=== PATIENT | female | born 1955 | race Caucasian/White ===

== ENCOUNTER → 2019-09-07 13:49 | Outpatient (BNVA) | payer SELFPAY | PROVIDERS: Family Provider Family Medicine; Visit Provider Nurse Practitioner Family | DX: J34.89 Other specified disorders of nose and nasal sinuses (principal); R53.83 Other fatigue; R68.83 Chills (without fever); Z11.59 Encounter for screening for other viral diseases | CPT/HCPCS: 87635 ==

== ENCOUNTER 2020-01-03 12:53 | Outpatient (CLI) | payer BC, SELFPAY ==
--- NOTE | 2020-01-03 13:02 | XR_ITS ---
WS: [id number] ABDOMEN KUB CLINICAL INFORMATION: Renal/ureteral calculi. COMPARISON: None. FINDINGS: Normal bowel gas pattern. Scattered air and normal caliber small and large bowel. No significant wil l distention. Cholecystectomy clips. Mild spondylitic changes lumbar spine. No definite visualized ureteral calculi . A few suspected left renal parenchymal calculi measuring 5 mm. XR/XR KUB [id number] Impression: 1. Diffuse suspected left renal parenchymal calculi measuring 5 mm. 2. No visualized right renal calculi. 3. No ureteral calculi. Pelvic phleboliths.
== END 2020-01-03 12:54 | disposition home or self-care (01) ==
LOC: RADWPI 13:00
PROVIDERS: PCP Family Medicine; Visit Provider Family Medicine
DX: N20.0 Calculus of kidney (principal)
CPT/HCPCS: 74018

== ENCOUNTER 2020-01-04 14:31 | Outpatient (CLI) | payer BC, SELFPAY ==
--- NOTE | 2020-01-04 14:43 | CT_ITS ---
WS: [id number] CT ABDOMEN PELVIS TECHNIQUE: Noncontrast CT of the abdomen and pelvis with coronal and sagittal reformatted images. CLINICAL INFORMATION: CALCULUS OF KIDNEY COMPARISON: None. DLP: 848.[address] scans at [facility] use at least one of these dose optimization techniques: automat ed exposure control; mA and/or kV adjustment per patient size (includes targeted exams where dose is matched to clinical indication); or iterative reconstruction. FINDINGS: Mild hepatomegaly. Mild diffuse fatty infiltration liver. Cholecystectomy clips. Normal GE junction. Small esophageal hiatal hernia. Lung bases are well aerated. Fatty atrophy of the pancreas. Noncontra st spleen is normal. Adrenal glands are normal. No hydronephrosis in the left kidney. Nonobstructing left calyceal tip calculus measuring 5 mm. No obstructing left ureteral calculi. No right renal paren chymal or ureteral calculi. No hydronephrosis in right kidney. Normal caliber abdominal aorta. Aortic calcification. No periaortic or retroperitoneal lymphadenopath y. Normal sigmoid colon. No evidence of small or large bowel obstruction. Normal appendix. Fat-contai ramirez umbilical hernia. No pelvic or inguinal lymphadenopathy. A few sigmoid diverticuli. No evidence of acute diverticulitis. CT/CT kidney stone [id number] IMPRESSION: 1. No obstructing renal or ureteral calculi. No hydronephrosis. 2. 5 mm nonobstructing left calyceal tip calculi. 3. Small esophageal hiatal hernia. 4. Mild hepatomegaly with diffuse fatty infiltration. 5. Prior cholecystectomy. 6. Sigmoid diverticulosis. No evidence of acute diverticulitis. 7. No free fluid in the abdomen or pelvis. 8. Incidental fat-containing umbilical hernia.
== END 2020-01-04 14:32 | disposition home or self-care (01) ==
LOC: RADWPI 14:33
PROVIDERS: PCP Family Medicine; Visit Provider Family Medicine
DX: N20.0 Calculus of kidney (principal); K42.9 Umbilical hernia without obstruction or gangrene; K57.30 Diverticulosis of large intestine without perforation or abscess without bleeding; Z90.49 Acquired absence of other specified parts of digestive tract; R16.0 Hepatomegaly, not elsewhere classified; K76.0 Fatty (change of) liver, not elsewhere classified
CPT/HCPCS: 74176

== ENCOUNTER 2020-01-06 04:22 | Emergency (ER) | payer BC, SELFPAY ==
[2020-01-06 04:26] VITALS: BP 151/84; PULSE 78; RESP 17; TEMP 36.6; O2SAT 95; BMI 37.5
--- NOTE | 2020-01-06 04:37 | W.ED.ABDPA2 ---
Documented by User: Colin Saha MD 01/06/20 05:29 HPI - Abdominal Pain General: Chief Complaint: Abdominal Pain Stated Complaint: poss kidney stones Time Seen by Provider: 01/06/20 04:24 Source: patient Mode of arrival: ambulatory Limitations: no limitations History of Present Illness: HPI narrative: 64-year-old female who states she is having abdominal pain earlier in the week and had a CT scan Thursday looking for kidney stone. It did show a stone in her left kidney had not passed. States her pain is been well Thursday and but states that just 2 hours ago she started having severe pain on the left side radiated to her groin. States pain was 9 out of 10 earlier. She took a hydrocodone now her pain is a 1 out of 10. She denies any vomiting or diarrhea. Denies any fevers. MD elicited complaint: abdominal pain Associated Symptoms: Denies chills, diarrhea, dysuria, fever(s), nausea and vomiting Review of Systems Const: Denies: fever(s), chills, body aches or change in appetite Eyes: Denies: blurry vision or eye discomfort ENMT: Denies: throat pain or dental pain Card: Denies: chest pain Resp: Denies: dyspnea GI: Reports: abdominal pain; Denies: nausea, vomiting or diarrhea : Denies: dysuria Musc: Denies: neck pain or back pain Skin/Breast: Denies: rash Neuro: Denies: headache(s) Psych: Denies: depression Albert/Lymph: Denies: easy bruising All/Imm: Denies: urticaria Physical Exam Const: COMMON NORMALS: no acute distress, patient oriented x3 and healthy appearing HENMT: COMMON NORMALS: normocephalic and atraumatic HEAD & SCALP: normocephalic and atraumatic Eye: COMMON NORMALS: Equal, round and reactive pupils present and EOMs intact bilaterally PUPIL: Yes Equal, round and reactive pupils present Neck/C-Spine: COMMON NORMALS: full ROM and supple Chest: COMMONS NORMALS: normal inspection of the chest and normal palpation of entire chest wall Resp: COMMON NORMALS: normal respiratory effort, No retractions, No use of accessory muscles and clear to auscultation bilaterally AUSCULTATION: clear to auscultation bilaterally Cardio: COMMON NORMALS: regular rate, regular rhythm and No murmurs present (Cardio) RATE: regular rate RHYTHM: regular rhythm GI: COMMON NORMALS: Normal to inspection, nondistended, normoactive bowel sounds present, Soft to palpation, non-tender and no masses PALPATION: Yes Soft to palpation Extremity: COMMON NORMALS: normal to inspection and full ROM Neuro: COMMON NORMALS: patient oriented x3, moves all extremities and no focal motor deficits Psych: COMMON NORMALS: mental status grossly normal, Normal thought process present and cooperative THOUGHT PROCESS: Normal thought process present Skin: COMMON NORMALS: no rashes or lesions noted and no wounds GENERAL SKIN EXAM: no rashes or lesions noted Course Vital Signs: Vital signs: Vital Signs Temperature 97.9 F 01/06/20 04:26 Pulse Rate 83 01/06/20 06:22 Respiratory Rate 18 01/06/20 06:22 Blood Pressure 148/88 01/06/20 06:22 Pulse Oximetry 97 01/06/20 06:22 MDM - Abdominal Pain MDM Narrative: Medical decision making narrative: Lala presents here with flank pain is likely kidney stone. Patient abdominal exam here is benign no signs of surgical abdomen. Reviewed her CT scan of 2 days ago which showed a stone in her left kidney. I believe the stone is likely passed into her ureter. Patient's pain-free now after Russell. Patient's labs and urine are pending and care turned over to Dr. Crowe. Lab Data: Labs: Lab Results 01/06/20 01/06/20 01/06/20 Range/Units 05:20 05:20 05:41 WBC 14.9 H (4.0-10.0) 10^3/ uL RBC 4.46 (4.1-5.3) 10^6/u L Hgb 11.9 (11.5-15.3) g/dL Hct 39.3 (37.0-47.0) % MCV 88.1 (81-99) fL MCH 26.7 L (28.0-34.0) pg MCHC 30.3 (30.0-36.0) g/dL RDW 14.9 (12.1-15.1) % Plt Count 336 (130-400) 10^3/c mm MPV 10.5 H (7.4-10.4) fL Neut % (Auto) 82.8 % Lymph % (Auto) 8.1 % Dewitt % (Auto) 7.0 % Eos % (Auto) 1.0 % Baso % (Auto) 0.7 % Neut # (Auto) 12.31 H (1.8-7.7) 10^3/u L Lymph # (Auto) 1.2 (0.8-4.8) 10^3/u L Dewitt # (Auto) 1.0 H (0.2-0.9) 10^3/u L Eos # (Auto) 0.2 (0.0-0.8) 10^3/u L Baso # (Auto) 0.1 (0.0-0.1) 10^3/u L Nucleated RBC % (a uto) 0 % Nucleated RBCs # 0.0 /100WBC Sodium 141 (136-145) mmol/L Potassium 4.0 (3.5-5.1) mmol/L Chloride 100 (98-107) mmol/L Carbon Dioxide 28 (22-29) mmol/L Anion Gap 17.0 (5-19) BUN 30 H (8-23) mg/dL Creatinine 1.0 H (0.5-0.9) mg/dL GFR Calculation 56.2 L (90-130) mL/min Glucose 141 H (65-115) mg/dL Calculated Osmolal ity 301 H (285-295) mOsm/k g Calcium 10.3 (8.5-10.5) mg/dL Total Bilirubin 0.2 (0.15-1.2) mg/dL AST 15 (0-32) U/L ALT 17 (0-33) U/L Alkaline Phosphata se 73 (35-105) IU/L Total Protein 6.9 (6.6-8.7) g/dL Albumin 4.1 (3.5-5.2) g/dL Globulin 2.8 (1.3-4.6) g/dL Lipase 41 (13-60) U/L Urine Color Yellow (Yellow) Urine Appearance Sl hazy (CLEAR) Urine pH 5 (5-7) Ur Specific Gravit y 1.020 (1.005-1.030) Urine Protein Neg (Negative) Urine Glucose (UA) Norm (Normal) Urine Ketones Negative (Negative) Urine Blood 3+ H (Negative) Urine Nitrate Negative (Negative) Urine Bilirubin Neg (Negative) Urine Urobilinogen Norm (Negative) mg/dL Ur Leukocyte Charlotte ase Negative (Negative) Urine RBC 50-80 H (0-2) /hpf Urine WBC 10-15 H (0-5) /hpf Ur Squamous Epith Cells 0-4 H (0-5) /hpf Ur Transition Epit h Cell 0-4 /hpf Amorphous Sediment Not Reportable Urine Bacteria 1+ H (NONE) /hpf Urine Mucus 1+ /hpf Discharge Plan Discharge Patient Disposition: Home Clinical Impression: Ureterolithiasis Condition: Stable Prescriptions: New hydrocodone-acetaminophen 5-325 mg tablet 1 tab PO Q6H PRN (Reason: pain) Qty: 20 RF: 0 tamsulosin 0.4 mg capsule 0.4 mg PO DAILY Qty: 14 RF: 0 Discharge Orders: Discharge Order (Routine); Ordered 01/06/20 Ordered By: Jorge A Foley Referrals: Devika Miller MD [Primary Care Provider] - Discharge Diet: Usual diet Discharge Activity: Increase activity as tolerated Activity Restrictions/Additional Instructions: Follow-up with your primary care doctor in the next 3 to 4 days. Return to the ER if you have uncontrolled pain. Strain urine to collect stone. Sign Out Sign Out Data: Patient Sign Out occurred on 01/06/20 at 05:52. Patient's care was discussed, and care was transferred from to Jorge A Foley DO. Coding Level of Care Code ED Drill Punch Operator for Chg Fwd Exam Comprehensive Documented by User: Jorge A Foley DO 01/06/20 06:58 HPI - Abdominal Pain General: Chief Complaint: Abdominal Pain Stated Complaint: poss kidney stones Time Seen by Provider: 01/06/20 04:24 Course Vital Signs: Vital signs: Vital Signs Temperature 97.9 F 01/06/20 04:26 Pulse Rate 83 01/06/20 06:22 Respiratory Rate 18 01/06/20 06:22 Blood Pressure 148/88 01/06/20 06:22 Pulse Oximetry 97 01/06/20 06:22 MDM - Abdominal Pain MDM Narrative: Medical decision making narrative: Care assumed a change of shift. KUB unable to localize stone due to stool and gas pattern. Patient is pain-free at this time will continue hydrocodone and Zofran she is previously prescribed. Gave some extra hydrocodone to get through the weekend. Lab her strain her urine also started on tamsulosin follow-up with her primary care doctor early next week return to the emergency room if she is unable to manage the pain with oral medications. Lab Data: Labs: Lab Results 01/06/20 01/06/20 01/06/20 Range/Units 05:20 05:20 05:41 WBC 14.9 H (4.0-10.0) 10^3/ uL RBC 4.46 (4.1-5.3) 10^6/u L Hgb 11.9 (11.5-15.3) g/dL Hct 39.3 (37.0-47.0) % MCV 88.1 (81-99) fL MCH 26.7 L (28.0-34.0) pg MCHC 30.3 (30.0-36.0) g/dL RDW 14.9 (12.1-15.1) % Plt Count 336 (130-400) 10^3/c mm MPV 10.5 H (7.4-10.4) fL Neut % (Auto) 82.8 % Lymph % (Auto) 8.1 % Dewitt % (Auto) 7.0 % Eos % (Auto) 1.0 % Baso % (Auto) 0.7 % Neut # (Auto) 12.31 H (1.8-7.7) 10^3/u L Lymph # (Auto) 1.2 (0.8-4.8) 10^3/u L Dewitt # (Auto) 1.0 H (0.2-0.9) 10^3/u L Eos # (Auto) 0.2 (0.0-0.8) 10^3/u L Baso # (Auto) 0.1 (0.0-0.1) 10^3/u L Nucleated RBC % (a uto) 0 % Nucleated RBCs # 0.0 /100WBC Sodium 141 (136-145) mmol/L Potassium 4.0 (3.5-5.1) mmol/L Chloride 100 (98-107) mmol/L Carbon Dioxide 28 (22-29) mmol/L Anion Gap 17.0 (5-19) BUN 30 H (8-23) mg/dL Creatinine 1.0 H (0.5-0.9) mg/dL GFR Calculation 56.2 L (90-130) mL/min Glucose 141 H (65-115) mg/dL Calculated Osmolal ity 301 H (285-295) mOsm/k g Calcium 10.3 (8.5-10.5) mg/dL Total Bilirubin 0.2 (0.15-1.2) mg/dL AST 15 (0-32) U/L ALT 17 (0-33) U/L Alkaline Phosphata se 73 (35-105) IU/L Total Protein 6.9 (6.6-8.7) g/dL Albumin 4.1 (3.5-5.2) g/dL Globulin 2.8 (1.3-4.6) g/dL Lipase 41 (13-60) U/L Urine Color Yellow (Yellow) Urine Appearance Sl hazy (CLEAR) Urine pH 5 (5-7) Ur Specific Gravit y 1.020 (1.005-1.030) Urine Protein Neg (Negative) Urine Glucose (UA) Norm (Normal) Urine Ketones Negative (Negative) Urine Blood 3+ H (Negative) Urine Nitrate Negative (Negative) Urine Bilirubin Neg (Negative) Urine Urobilinogen Norm (Negative) mg/dL Ur Leukocyte Charlotte ase Negative (Negative) Urine RBC 50-80 H (0-2) /hpf Urine WBC 10-15 H (0-5) /hpf Ur Squamous Epith Cells 0-4 H (0-5) /hpf Ur Transition Epit h Cell 0-4 /hpf Amorphous Sediment Not Reportable Urine Bacteria 1+ H (NONE) /hpf Urine Mucus 1+ /hpf Discharge Plan Discharge Patient Disposition: Home Clinical Impression: Ureterolithiasis Condition: Stable Prescriptions: New hydrocodone-acetaminophen 5-325 mg tablet 1 tab PO Q6H PRN (Reason: pain) Qty: 20 RF: 0 tamsulosin 0.4 mg capsule 0.4 mg PO DAILY Qty: 14 RF: 0 Discharge Orders: Discharge Order (Routine); Ordered 01/06/20 Ordered By: Jorge A Foley Referrals: Devika Miller MD [Primary Care Provider] - Discharge Diet: Usual diet Discharge Activity: Increase activity as tolerated Activity Restrictions/Additional Instructions: Follow-up with your primary care doctor in the next 3 to 4 days. Return to the ER if you have uncontrolled pain. Strain urine to collect stone. Sign Out Sign Out Data: Patient Sign Out occurred on 01/06/20 at 05:52. Patient's care was discussed, and care was transferred from to Jorge A Foley DO. Coding Level of Care Code ED Drill Punch Operator for Chg Fwd Exam Comprehensive
[2020-01-06] MEDS: sodium chloride 0.9% 1,000 ML 999 ML IV (05:05)
[2020-01-06] MEDS: ondansetron 2 mg/ML SDV 2 mL 4 MG IVP (05:08)
[2020-01-06 05:22] VITALS: BP 147/87; PULSE 82; RESP 16; O2SAT 96
[2020-01-06 05:33] VITALS: BP 147/87; RESP 18; O2SAT 93
--- NOTE | 2020-01-06 05:52 | XRR_ITS ---
PROCEDURE INFORMATION: Exam: XR Abdomen, 1 View Exam date and time: 01/06/2020 6:00 AM Age: 64 years old Clinical indication: Abdominal pain; Prior surgery; Surgery type: Gb, hysto; Additional info: Abd pain TECHNIQUE: Imaging protocol: XR of the abdomen. Views: Frontal supine view of the abdomen. 1 View. COMPARISON: CT kidney stone [id number] 01/04/2020 2:56 PM FINDINGS: Gastrointestinal tract: Normal. No bowel dilation. Cholecystectomy clips are in place. Bones/joints: Unremarkable. XR/XR KUB portable [id number] IMPRESSION: No acute findings.
[2020-01-06 06:01] LABS: Basophils # 0.1 10^3/uL (0.0-0.1); Basophils % 0.7 %; Eosinophils # 0.2 10^3/uL (0.0-0.8); Hematocrit 39.3 % (37.0-47.0); Hemoglobin 11.9 g/dL (11.5-15.3); Lymphocytes # 1.2 10^3/uL (0.8-4.8); Lymphocytes % 8.1 %; Mean Corpuscular HGB Conc 30.3 g/dL (30.0-36.0); Mean Corpuscular Hemoglobin 26.7 pg (28.0-34.0); Mean Corpuscular Volume 88.1 fL (81-99); Mean Platelet Volume 10.5 fL (7.4-10.4); Neutrophils # 12.31 10^3/uL (1.8-7.7); Neutrophils % 82.8 %; Nucleated Red Blood Cells % 0 %; Platelet Count 336 10^3/cmm (130-400); Red Blood Count 4.46 10^6/uL (4.1-5.3); Red Cell Distribution Width 14.9 % (12.1-15.1); White Blood Count 14.9 10^3/uL (4.0-10.0)
[2020-01-06 06:02] LABS: Alanine Aminotransferase 17 U/L (0-33); Albumin Level 4.1 g/dL (3.5-5.2); Alkaline Phosphatase 73 IU/L (35-105); Aspartate Amino Transferase 15 U/L (0-32); Blood Urea Nitrogen 30 mg/dL (8-23); Calcium 10.3 mg/dL (8.5-10.5); Carbon Dioxide 28 mmol/L (22-29); Chloride 100 mmol/L (98-107); Globulin 2.8 g/dL (1.3-4.6); Glomerular Filtration Rate 56.2 mL/min (90-130); Glucose 141 mg/dL (65-115); Lipase 41 U/L (13-60); Osmolality Calculated 301 mOsm/kg (285-295); Sodium 141 mmol/L (136-145); Total Bilirubin 0.2 mg/dL (0.15-1.2); Total Protein 6.9 g/dL (6.6-8.7)
[2020-01-06 06:22] VITALS: BP 148/88; PULSE 83; RESP 18; O2SAT 97
[2020-01-06 06:39] LABS: Add Urine Microscopic? YES; Bilirubin Urine Neg (Negative); Blood Urine 3+ (Negative); Glucose Urine UA Norm (Normal); Ketones Urine Negative (Negative); Leukocyte Esterase Urine Negative (Negative); Nitrate Urine Negative (Negative); Protein Urine Neg (Negative); Urine Appearance SL Hazy (CLEAR); Urine Color Yellow (Yellow); Urobilinogen Urine Norm (Negative); pH Urine 5 (5-7)
[2020-01-06 06:40] LABS: RBC Urine 50-80 /hpf (0-2)
[2020-01-06 06:41] LABS: Add Urine Culture? Yes; Bacteria Urine 1+ /hpf; Mucus Urine 1+ /hpf; Squamous Epithelial Cell Urine 0-4 /hpf (0-5); Transitional Epi Cells Urine 0-4 /hpf
[2020-01-06 07:36] VITALS: BP 130/80; PULSE 87; RESP 18; O2SAT 92
== END 2020-01-06 07:10 | disposition home or self-care (01) ==
PROVIDERS: Emergency Medicine; Emergency Provider Family Medicine; PCP Family Medicine
DX: N20.1 Calculus of ureter (principal)
CPT/HCPCS: 12345; 74018; 80053; 81001; 83690; 85025; 87086; 96361; 96374; 99282; 99283; J2405; J7030

== ENCOUNTER 2020-01-09 06:32 | Emergency (ER) | payer BC, SELFPAY ==
[2020-01-09 06:39] VITALS: BP 115/84; PULSE 92; RESP 18; TEMP 37.1; O2SAT 97; BMI 37.5
--- NOTE | 2020-01-09 07:12 | XRR_ITS ---
PROCEDURE INFORMATION: Exam: XR Abdomen, 1 View Exam date and time: 01/09/2020 7:30 AM Age: 64 years old Clinical indication: Constipation; Prior surgery; Surgery type: Gb, hysterectomy TECHNIQUE: Imaging protocol: XR of the abdomen. Views: Frontal supine view of the abdomen. 1 View. COMPARISON: CR XR KUB portable [id number] 01/06/2020 5:55 AM FINDINGS: Gastrointestinal tract: There is mildly increased stool noted in the colonic hepatic flexure. No evidence of bowel obstruction. Organs: The gallbladder is likely surgically absent, with metallic clips overlying the gallbladder fossa. Bones/joints: No acute abnormality identified. XR/XR KUB portable [id number] IMPRESSION: 1. Mild right upper abdominal colonic constipation. 2. Prior cholecystectomy.
[2020-01-09 07:51] LABS: Basophils # 0.1 10^3/uL (0.0-0.1); Basophils % 0.6 %; Eosinophils # 0.3 10^3/uL (0.0-0.8); Hematocrit 40.4 % (37.0-47.0); Hemoglobin 12.4 g/dL (11.5-15.3); Lymphocytes # 1.7 10^3/uL (0.8-4.8); Lymphocytes % 13.3 %; Mean Corpuscular HGB Conc 30.7 g/dL (30.0-36.0); Mean Corpuscular Hemoglobin 27.3 pg (28.0-34.0); Mean Platelet Volume 10.2 fL (7.4-10.4); Monocytes % 8.1 %; Neutrophils # 9.46 10^3/uL (1.8-7.7); Neutrophils % 75.5 %; Nucleated Red Blood Cells % 0 %; Platelet Count 341 10^3/cmm (130-400); Red Blood Count 4.54 10^6/uL (4.1-5.3); Red Cell Distribution Width 14.6 % (12.1-15.1); White Blood Count 12.5 10^3/uL (4.0-10.0)
--- NOTE | 2020-01-09 08:12 | ED_ITS ---
HPI - General Adult General: Chief complaint: General Medical Stated complaint: constipation Time Seen by Provider: 01/09/20 06:47 History of Present Illness: HPI narrative: 64-year-old female came in last week for a nephrolithiasis feels like she had a bladder infection was started on ciprofloxacin. Advised to continue that at hydrocodone 10 tamsulosin 1. She denies any flank pain which is a bout of abdominal pain and cramping since starting the hydrocodone the pain is been well controlled. She has just 2 days left of the Cipro and still has some dysuria Onset (ago): day(s) Location: abdomen Radiation: non-radiation Severity: mild Quality: aching Pain Consistency: intermittent and colicky Relieving factors: none Exacerbating factors: none Associated symptoms: Reports headache(s) and nausea; Deny chest pain, confusion, cough, diaphoresis, decreased appetite, dyspnea, fevers/chills, malaise, rash, palpitations, seizures, short of breath, syncope, vomiting or weakness Treatments prior to arrival: none Review of Systems Const: Denies: malaise or diaphoresis ENMT: Denies: throat pain, ear or mastoid pain, nasal discharge or nasal congestion Card: Denies: chest pain, palpitations or syncope Resp: Denies: dyspnea GI: Reports: nausea; Denies: vomiting : Denies: flank pain, difficulty voiding, dysuria, urinary frequency or urinary urgency Skin/Breast: Denies: rash Neuro: Reports: headache(s); Denies: confusion Physical Exam Const: COMMON NORMALS: no acute distress GENERAL APPEARANCE: cooperative and comfortable ORIENTATION/CONSCIOUSNESS: Yes awake, Yes oriented to person, Yes oriented to place and Yes oriented to time HENMT: COMMON NORMALS: normocephalic, atraumatic and hearing grossly normal bilaterally HEAD & SCALP: normocephalic and atraumatic Neck/C-Spine: COMMON NORMALS: no JVD Resp: COMMON NORMALS: normal respiratory effort, No retractions, No use of accessory muscles and clear to auscultation bilaterally AUSCULTATION: clear to auscultation bilaterally Cardio: COMMON NORMALS: no JVD, regular rate, regular rhythm and No murmurs present (Cardio) RATE: regular rate RHYTHM: regular rhythm GI: COMMON NORMALS: Soft to palpation and No hepatosplenomegaly present AUSCULTATION: Yes normoactive bowel sounds PALPATION: Yes Soft to palpation, No Tenderness to palpation present (GI), No Guarding due to palpation present (GI) and Yes No hepatosplenomegaly present Extremity: COMMON NORMALS: normal to inspection, capillary refill normal, no clubbing, cyanosis or edema, no calf tenderness and no pedal edema Neuro: SENSORIUM/ORIENTATION: Yes oriented to person, Yes oriented to place and Yes oriented to time Skin: COMMON NORMALS: no rashes or lesions noted GENERAL SKIN EXAM: no rashes or lesions noted Course Vital Signs: Vital signs: Vital Signs Temperature 98.8 F 01/09/20 06:39 Pulse Rate 92 01/09/20 06:39 Respiratory Rate 18 01/09/20 06:39 Blood Pressure 115/84 01/09/20 06:39 Pulse Oximetry 97 01/09/20 06:39 MDM - General Adult MDM Narrative: Medical decision making narrative: UA still shows signs of infection. Will add Bactrim DS 1 p.o. twice daily for 7 days MiraLAX regularly to prevent constipation. Follow-up with Dr. Copeland as previously scheduled. Continue to strain her urine to this point she is not caught the stone but she does not have much for pain at all. Since she is relatively pain-free hold off on repeating the CT for renal stone today. She had good relief of her abdominal cramping with the enema. Keep the appointment Dr. Devika Miller as scheduled. Lab Data: Labs: Lab Results 01/09/20 01/09/20 01/09/20 Range/Units 07:40 07:40 09:21 WBC 12.5 H (4.0-10.0) 10^3/ uL RBC 4.54 (4.1-5.3) 10^6/u L Hgb 12.4 (11.5-15.3) g/dL Hct 40.4 (37.0-47.0) % MCV 89.0 (81-99) fL MCH 27.3 L (28.0-34.0) pg MCHC 30.7 (30.0-36.0) g/dL RDW 14.6 (12.1-15.1) % Plt Count 341 (130-400) 10^3/c mm MPV 10.2 (7.4-10.4) fL Neut % (Auto) 75.5 % Lymph % (Auto) 13.3 % Letcher % (Auto) 8.1 % Eos % (Auto) 2.0 % Baso % (Auto) 0.6 % Neut # (Auto) 9.46 H (1.8-7.7) 10^3/u L Lymph # (Auto) 1.7 (0.8-4.8) 10^3/u L Letcher # (Auto) 1.0 H (0.2-0.9) 10^3/u L Eos # (Auto) 0.3 (0.0-0.8) 10^3/u L Baso # (Auto) 0.1 (0.0-0.1) 10^3/u L Nucleated RBC % (a uto) 0 % Nucleated RBCs # 0.0 /100WBC Sodium 139 (136-145) mmol/L Potassium 4.0 (3.5-5.1) mmol/L Chloride 99 (98-107) mmol/L Carbon Dioxide 27 (22-29) mmol/L Anion Gap 17.0 (5-19) BUN 14 (8-23) mg/dL Creatinine 0.8 (0.5-0.9) mg/dL GFR Calculation 72.7 L (90-130) mL/min Glucose 121 H (65-115) mg/dL Calculated Osmolal ity 290 (285-295) mOsm/k g Calcium 9.4 (8.5-10.5) mg/dL Total Bilirubin 0.4 (0.15-1.2) mg/dL AST 15 (0-32) U/L ALT 18 (0-33) U/L Alkaline Phosphata se 77 (35-105) IU/L Total Protein 7.2 (6.6-8.7) g/dL Albumin 4.4 (3.5-5.2) g/dL Globulin 2.8 (1.3-4.6) g/dL Urine Color Dark yellow (Yellow) Urine Appearance Cloudy (CLEAR) Urine pH 5 (5-7) Ur Specific Gravit y 1.030 (1.005-1.030) Urine Protein 1+ H (Negative) Urine Glucose (UA) Norm (Normal) Urine Ketones Negative (Negative) Urine Blood 3+ H (Negative) Urine Nitrate Negative (Negative) Urine Bilirubin 1+ H (Negative) Urine Urobilinogen 1 H (Negative) mg/dL Ur Leukocyte Charlotte ase Negative (Negative) Urine RBC 25-40 H (0-2) /hpf Urine WBC 15-25 H (0-5) /hpf Ur Squamous Epith Cells 0-4 H (0-5) /hpf Amorphous Sediment Not Reportable Urine Bacteria 1+ H (NONE) /hpf Discharge Plan Discharge Patient Disposition: Home Clinical Impression: Constipation Condition: Stable Prescriptions: New Miralax 17 gram/dose powder 17 g PO DAILY Qty: 510 RF: 0 Bactrim DS 800-160 mg tablet 1 tab PO BID Qty: 14 RF: 0 No Action hydrocodone-acetaminophen 5-325 mg tablet 1 tab PO Q6H PRN (Reason: pain) Qty: 20 RF: 0 tamsulosin 0.4 mg capsule 0.4 mg PO DAILY Qty: 14 RF: 0 Discharge Orders: Discharge Order (Routine); Ordered 01/09/20 Ordered By: Jorge A Foley Referrals: Devika Miller MD [Primary Care Provider] - Discharge Diet: Usual diet Discharge Activity: Increase activity as tolerated Activity Restrictions/Additional Instructions: Continue to strain urine follow-up with Dr. Devika Miller as previously scheduled Coding Level of Care Code ED Lead Fire Protection Engineer for Chg Fwd Exam Comprehensive
[2020-01-09 08:14] LABS: Alanine Aminotransferase 18 U/L (0-33); Albumin Level 4.4 g/dL (3.5-5.2); Alkaline Phosphatase 77 IU/L (35-105); Aspartate Amino Transferase 15 U/L (0-32); Blood Urea Nitrogen 14 mg/dL (8-23); Calcium 9.4 mg/dL (8.5-10.5); Carbon Dioxide 27 mmol/L (22-29); Chloride 99 mmol/L (98-107); Globulin 2.8 g/dL (1.3-4.6); Glomerular Filtration Rate 72.7 mL/min (90-130); Glucose 121 mg/dL (65-115); Osmolality Calculated 290 mOsm/kg (285-295); Sodium 139 mmol/L (136-145); Total Bilirubin 0.4 mg/dL (0.15-1.2); Total Protein 7.2 g/dL (6.6-8.7)
[2020-01-09 09:30] LABS: Bilirubin Urine 1+ (Negative); Glucose Urine UA Norm (Normal); Ketones Urine Negative (Negative); Nitrate Urine Negative (Negative); Protein Urine 1+ (Negative); Urine Appearance Cloudy (CLEAR); Urine Color Dark Yellow (Yellow); pH Urine 5 (5-7)
[2020-01-09 09:31] LABS: Add Urine Microscopic? YES; Blood Urine 3+ (Negative); Leukocyte Esterase Urine Negative (Negative); Urobilinogen Urine 1 mg/dL (Negative)
[2020-01-09 09:53] LABS: Add Urine Culture? Yes; Bacteria Urine 1+ /hpf; RBC Urine 25-40 /hpf (0-2); Squamous Epithelial Cell Urine 0-4 /hpf (0-5); WBC Urine 15-25 /hpf (0-5)
== END 2020-01-09 10:40 | disposition home or self-care (01) ==
PROVIDERS: Emergency Provider Family Medicine; PCP Family Medicine
DX: K59.00 Constipation, unspecified (principal)
CPT/HCPCS: 12345; 74018; 80053; 81001; 85025; 87086; 99281; 99283

== ENCOUNTER 2020-02-02 11:18 | Outpatient (CLI) | payer BC, SELFPAY ==
--- NOTE | 2020-02-02 11:38 | XRR_ITS ---
PROCEDURE INFORMATION: Exam: XR Abdomen, 1 View Exam date and time: 02/02/2020 11:40 AM Age: 64 years old Clinical indication: Abdominal pain; Periumbilical; Prior surgery; Surgery type: Hyst, gb; Additional info: Pelvic perineal pain/periumbilical pain TECHNIQUE: Imaging protocol: XR of the abdomen. Views: Frontal supine view of the abdomen. 1 View. COMPARISON: CR XR KUB portable [id number] 01/09/2020 7:15 AM FINDINGS: Gastrointestinal tract: Normal. No bowel dilation. Organs: Clips are present in the right upper quadrant consistent with cholecystectomy. There is a 7 mm calcification in the left lower pelvis which is consistent with a distal left ureteral stone. Bones/joints: Unremarkable. XR/XR KUB [id number] IMPRESSION: A 7 mm calcification in the left lower pelvis is consistent with a distal left ureteral stone.
== END 2020-02-02 11:19 | disposition home or self-care (01) ==
PROVIDERS: PCP Family Medicine; Visit Provider Nurse Practitioner Family
DX: R10.2 Pelvic and perineal pain (principal); R10.33 Periumbilical pain; N20.1 Calculus of ureter
CPT/HCPCS: 74018

== ENCOUNTER 2020-05-28 15:00 | Outpatient (CLI) | payer BC, SELFPAY ==
--- NOTE | 2020-05-28 15:04 | MM_ITS ---
WS: [id number] BILATERAL DIGITAL SCREENING MAMMOGRAPHY WITH CAD CLINICAL INFORMATION: SCREENING HISTORY: Screening mammogram. No current complaints. COMPARISON: TECHNIQUE: Bilateral CC and MLO views. FINDINGS: The breasts are composed of heterogeneous fibroglandular density tissue, which can limit the detectio n of small underlying mass lesions. No suspicious mass, asymmetry, calcifications, or architectural d istortion. No evidence of malignancy. MM/[place] [id number] IMPRESSION: BI-RADS: 1-Negative FOLLOW UP: 1 Year Follow-up Recommend return to annual screening mammography.
== END 2020-05-28 15:01 | disposition home or self-care (01) ==
LOC: RADSHAW 15:03
PROVIDERS: PCP Family Medicine; Visit Provider Family Medicine
DX: Z12.31 Encounter for screening mammogram for malignant neoplasm of breast (principal)
CPT/HCPCS: 77067

== ENCOUNTER 2020-06-11 06:00 | Outpatient (RCR) | payer BC, SELFPAY | END 2020-07-09 23:59 | disposition home or self-care (01) | LOC: SPT 06:00 | PROVIDERS: PCP Family Medicine; Referring Provider Physician Assistant Surgical; Visit Provider Physician Assistant Surgical | DX: Z47.1 Aftercare following joint replacement surgery (principal); Z96.651 Presence of right artificial knee joint | CPT/HCPCS: 97110; 97161 ==

== ENCOUNTER 2020-08-19 02:04 | Emergency (ER) | payer BC, SELFPAY ==
[2020-08-19 02:12] VITALS: BP 110/71; PULSE 81; RESP 16; TEMP 36.7; O2SAT 94; BMI 37.5
--- NOTE | 2020-08-19 02:17 | CTR_ITS ---
PROCEDURE INFORMATION: Exam: CT Head Without Contrast Exam date and time: 08/19/2020 2:17 AM Age: 65 years old Clinical indication: Dizziness; Additional info: Dizziness, n/v TECHNIQUE: Imaging protocol: Computed tomography of the head without contrast. Radiation optimization: All CT scans at this facility use at least one of these dose optimization techniques: automated exposure control; mA and/or kV adjustment per patient size (includes targeted exams where dose is matched to clinical indication); or iterative reconstruction. COMPARISON: No relevant prior studies available. RADIATION DOSE METRICS: Total DLP (mGy-cm): 809.96 FINDINGS: Brain: No acute intracranial hemorrhage or mass effect. No definite acute infarct by CT. MRI could be more sensitive/specific for detection, as clinically directed. Cerebral ventricles: Ventricle size is normal for age. Paranasal sinuses: Included paranasal sinuses are essentially clear. Mastoid air cells: No significant acute finding. Bones/joints: No definite acute skull fracture. CT/CT head wo con* [id number] IMPRESSION: 1. No acute intracranial hemorrhage or mass effect. 2. No definite acute infarct by CT, see above. 3. Other findings discussed above. Radiation Dose CTDIVOL = (mGy): DLP = 809.96 (mGy-cm)
[2020-08-19 03:18] LABS: Bilirubin Urine Neg (Negative); Blood Urine 3+ (Negative); Glucose Urine UA Norm (Normal); Ketones Urine Negative (Negative); Nitrate Urine Negative (Negative); Protein Urine Neg (Negative); Urine Appearance SL Hazy (CLEAR); Urine Color Yellow (Yellow); pH Urine 5 (5-7)
[2020-08-19 03:19] LABS: Leukocyte Esterase Urine 2+ (Negative); Urobilinogen Urine Norm (Negative)
[2020-08-19 03:21] LABS: Add Urine Culture? Yes; Bacteria Urine 1+ /hpf; RBC Urine 25-40 /hpf (0-2); WBC Urine 40-55 /hpf (0-5)
[2020-08-19 03:43] LABS: Basophils # 0.1 10^3/uL (0.0-0.1); Basophils % 0.7 %; Eosinophils # 0.2 10^3/uL (0.0-0.8); Eosinophils % 1.1 %; Hematocrit 38.2 % (37.0-47.0); Hemoglobin 12.4 g/dL (11.5-15.3); Lymphocytes # 1.3 10^3/uL (0.8-4.8); Lymphocytes % 7.2 %; Mean Corpuscular HGB Conc 32.5 g/dL (30.0-36.0); Mean Corpuscular Hemoglobin 28.8 pg (28.0-34.0); Mean Corpuscular Volume 88.6 fL (81-99); Mean Platelet Volume 10.4 fL (7.4-10.4); Monocytes # 1.2 10^3/uL (0.2-0.9); Monocytes % 6.7 %; Neutrophils # 14.93 10^3/uL (1.8-7.7); Neutrophils % 83.7 %; Nucleated Red Blood Cells % 0 %; Platelet Count 339 10^3/cmm (130-400); Red Blood Count 4.31 10^6/uL (4.1-5.3); Red Cell Distribution Width 14.1 % (12.1-15.1); White Blood Count 17.8 10^3/uL (4.0-10.0)
--- NOTE | 2020-08-19 03:59 | W.ED.DIZZY ---
HPI - Dizziness General: Chief Complaint: Dizziness Stated Complaint: n/v/dizziness Time Seen by Provider: 08/19/20 02:22 History of Present Illness: HPI Narrative: 65-year-old female who sometime after midnight, around 1230 began to have intense vertigo, made worse with head movement. She states she was in a recliner, and felt like the recliner was tipping over. She began to get nauseated with this and threw up a couple of times. Her dizziness is somewhat improved now, but not gone. Is made worse by turning her head. She had an intense headache in the beginning, but this is improved as well no fever. No known sick contacts or recent illnesses MD elicited complaint: dizziness and vertigo Onset (ago): hour(s) Timing: sudden onset Severity: moderate Description: sense of movement, room spinning , lightheadedness and difficulty walking Context: change in body position History of similar symptoms: No Exacerbating factors: movement/ambulation Relieving factors: remaining still Associated symptoms: Reports headache(s), nausea, vomiting and weakness (Generalized); Denies chest pain, chills, cough, diaphoresis, fevers/chills, nasal congestion, rash or short of breath Associated neuro symptoms: Deny confusion, difficulty speaking or dysphagia Review of Systems Const: Denies: chills or diaphoresis ENMT: Denies: nasal congestion Card: Denies: chest pain Resp: Denies: dyspnea, productive cough or non-productive cough GI: Reports: nausea and vomiting; Denies: dysphagia Neuro: Reports: headache(s); Denies: confusion Physical Exam Const: COMMON NORMALS: no acute distress, patient oriented x3 and alert GENERAL APPEARANCE: cooperative HENMT: COMMON NORMALS: normocephalic HEAD & SCALP: normocephalic Chest: COMMONS NORMALS: normal inspection of the chest Resp: COMMON NORMALS: normal respiratory effort, No use of accessory muscles and clear to auscultation bilaterally AUSCULTATION: clear to auscultation bilaterally Cardio: COMMON NORMALS: regular rate, regular rhythm and No murmurs present (Cardio) RATE: regular rate RHYTHM: regular rhythm GI: COMMON NORMALS: Normal to inspection, nondistended, normoactive bowel sounds present, Soft to palpation and non-tender PALPATION: Yes Soft to palpation Neuro: COMMON NORMALS: patient oriented x3 SENSORIUM/ORIENTATION: Yes alert Course Vital Signs: Vital signs: Vital Signs Temperature 98.6 F 08/19/20 06:44 Pulse Rate 75 08/19/20 06:44 Respiratory Rate 18 08/19/20 06:44 Blood Pressure 142/84 08/19/20 06:44 Pulse Oximetry 95 08/19/20 06:44 MDM - Dizziness MDM Narrative: Medical decision making narrative: 65-year-old female with vertiginous dizziness. It is quite positional on exam. [id number]-qc-vhuf is normal. She has no nystagmus. Her NIH score is 0. She is improved after some fluid, and Ativan with meclizine here. White blood cell count is 17.8. Electrolytes are normal. First troponin is 11. There is no significant rise on the second troponin. Her EKG shows a normal sinus rhythm with normal axis and no acute ST changes. Her urinalysis shows urinary tract infection. Because of the elevation in white blood cell count, as well as hematuria, CT renal stone protocol was ordered. There is no obstructive uropathy, or ureteral calculus. There are changes of gastroenteritis on CT scan. Spoke with the patient. She would like to go home as opposed to being observed or admitted. To go home with symptomatic treatment for vertigo and antibiotics for the urinary tract infection. Lab Data: Labs: Lab Results 08/19/20 08/19/20 08/19/20 Range/Units 02:50 03:34 03:34 WBC 17.8 H (4.0-10.0) 10^3/ uL RBC 4.31 (4.1-5.3) 10^6/u L Hgb 12.4 (11.5-15.3) g/dL Hct 38.2 (37.0-47.0) % MCV 88.6 (81-99) fL MCH 28.8 (28.0-34.0) pg MCHC 32.5 (30.0-36.0) g/dL RDW 14.1 (12.1-15.1) % Plt Count 339 (130-400) 10^3/c mm MPV 10.4 (7.4-10.4) fL Neut % (Auto) 83.7 % Lymph % (Auto) 7.2 % [place] % (Auto) 6.7 % Eos % (Auto) 1.1 % Baso % (Auto) 0.7 % Neut # (Auto) 14.93 H (1.8-7.7) 10^3/u L Lymph # (Auto) 1.3 (0.8-4.8) 10^3/u L [place] # (Auto) 1.2 H (0.2-0.9) 10^3/u L Eos # (Auto) 0.2 (0.0-0.8) 10^3/u L Baso # (Auto) 0.1 (0.0-0.1) 10^3/u L Nucleated RBC % (a uto) 0 % Nucleated RBCs # 0.0 /100WBC Sodium 139 (136-145) mmol/L Potassium 4.0 (3.5-5.1) mmol/L Chloride 100 (98-107) mmol/L Carbon Dioxide 28 (22-29) mmol/L Anion Gap 15.0 (5-19) BUN 21 (8-23) mg/dL Creatinine 0.9 (0.5-0.9) mg/dL GFR Calculation 63.2 L (90-130) mL/min Glucose 124 H (65-115) mg/dL Calculated Osmolal ity 292 (285-295) mOsm/k g Calcium 9.3 (8.5-10.5) mg/dL Total Bilirubin 0.3 (0.15-1.2) mg/dL AST 21 (0-32) U/L ALT 19 (0-33) U/L Alkaline Phosphata se 82 (35-105) IU/L Troponin T Baselin e (0-10) ng/L Troponin T 120 Min [place] (0-10) ng/L Delta Troponin T (0-10) ABS# Total Protein 6.9 (6.6-8.7) g/dL Albumin 4.5 (3.5-5.2) g/dL Globulin 2.4 (1.3-4.6) g/dL Urine Color Yellow (Yellow) Urine Appearance Sl hazy (CLEAR) Urine pH 5 (5-7) Ur Specific Gravit y 1.020 (1.005-1.030) Urine Protein Neg (Negative) Urine Glucose (UA) Norm (Normal) Urine Ketones Negative (Negative) Urine Blood 3+ H (Negative) Urine Nitrate Negative (Negative) Urine Bilirubin Neg (Negative) Urine Urobilinogen Norm (Negative) mg/dL Ur Leukocyte [place] ase 2+ H (Negative) Urine RBC 25-40 H (0-2) /hpf Urine WBC 40-55 H (0-5) /hpf Ur Squamous Epith Cells 5-10 H (0-5) /hpf Amorphous Sediment Not Reportable Urine Bacteria 1+ H (NONE) /hpf 08/19/20 08/19/20 Range/Units 03:34 04:25 WBC (4.0-10.0) 10^3/ uL RBC (4.1-5.3) 10^6/u L Hgb (11.5-15.3) g/dL Hct (37.0-47.0) % MCV (81-99) fL MCH (28.0-34.0) pg MCHC (30.0-36.0) g/dL RDW (12.1-15.1) % Plt Count (130-400) 10^3/c mm MPV (7.4-10.4) fL Neut % (Auto) % Lymph % (Auto) % [place] % (Auto) % Eos % (Auto) % Baso % (Auto) % Neut # (Auto) (1.8-7.7) 10^3/u L Lymph # (Auto) (0.8-4.8) 10^3/u L [place] # (Auto) (0.2-0.9) 10^3/u L Eos # (Auto) (0.0-0.8) 10^3/u L Baso # (Auto) (0.0-0.1) 10^3/u L Nucleated RBC % (a uto) % Nucleated RBCs # /100WBC Sodium (136-145) mmol/L Potassium (3.5-5.1) mmol/L Chloride (98-107) mmol/L Carbon Dioxide (22-29) mmol/L Anion Gap (5-19) BUN (8-23) mg/dL Creatinine (0.5-0.9) mg/dL GFR Calculation (90-130) mL/min Glucose (65-115) mg/dL Calculated Osmolal ity (285-295) mOsm/k g Calcium (8.5-10.5) mg/dL Total Bilirubin (0.15-1.2) mg/dL AST (0-32) U/L ALT (0-33) U/L Alkaline Phosphata se (35-105) IU/L Troponin T Baselin e 11 H (0-10) ng/L Troponin T 120 Min [place] 13.07 H (0-10) ng/L Delta Troponin T 2.07 (0-10) ABS# Total Protein (6.6-8.7) g/dL Albumin (3.5-5.2) g/dL Globulin (1.3-4.6) g/dL Urine Color (Yellow) Urine Appearance (CLEAR) Urine pH (5-7) Ur Specific Gravit y (1.005-1.030) Urine Protein (Negative) Urine Glucose (UA) (Normal) Urine Ketones (Negative) Urine Blood (Negative) Urine Nitrate (Negative) Urine Bilirubin (Negative) Urine Urobilinogen (Negative) mg/dL Ur Leukocyte [place] ase (Negative) Urine RBC (0-2) /hpf Urine WBC (0-5) /hpf Ur Squamous Epith Cells (0-5) /hpf Amorphous Sediment Urine Bacteria (NONE) /hpf Discharge Plan Discharge Patient Disposition: Home Clinical Impression: Urinary tract infection Qualifiers: Urinary tract infection type: acute cystitis Hematuria presence: with hematuria Qualified Code(s): N30.01 - Acute cystitis with hematuria Acute vestibular neuronitis Qualifiers: Laterality: right Qualified Code(s): H81.21 - Vestibular neuronitis, right ear Condition: Stable Prescriptions: New cefdinir 300 mg capsule 300 mg PO BID 7 Days Qty: 14 RF: 0 Zofran 4 mg tablet 4 mg PO Q6H PRN (Reason: nausea and vomiting) Qty: 10 RF: 0 meclizine 25 mg tablet 25 mg PO TID PRN (Reason: dizziness) Qty: 30 RF: 0 No Action hydrocodone-acetaminophen 5-325 mg tablet 1 tab PO Q6H PRN (Reason: pain) Qty: 20 RF: 0 tamsulosin 0.4 mg capsule 0.4 mg PO DAILY Qty: 14 RF: 0 Miralax 17 gram/dose powder 17 g PO DAILY Qty: 510 RF: 0 Bactrim DS 800-160 mg tablet 1 tab PO BID Qty: 14 RF: 0 Discharge Orders: Discharge ED (Routine); Ordered 08/19/20 Ordered By: Agustin Hendrix Referrals: Devika Miller MD [Primary Care Provider] - 1-3 days Patient Instructions: Urinary Tract Infection in Women (ED), Vertigo (ED) Activity Restrictions/Additional Instructions: Return for fever greater than 100 despite 2-3 doses of antibiotics, vomiting liquids or medications, significant headache, worsening dizziness despite treatment, mental status changes, weakness, any other concerning symptoms. Coding Level of Care Code ED Senior Principal Process Engineer for Chg Fwd Exam Detailed
[2020-08-19 04:03] LABS: Troponin(5th) Baseline 11 ng/L (0-10)
[2020-08-19 04:06] LABS: Alanine Aminotransferase 19 U/L (0-33); Albumin Level 4.5 g/dL (3.5-5.2); Alkaline Phosphatase 82 IU/L (35-105); Blood Urea Nitrogen 21 mg/dL (8-23); Calcium 9.3 mg/dL (8.5-10.5); Carbon Dioxide 28 mmol/L (22-29); Chloride 100 mmol/L (98-107); Globulin 2.4 g/dL (1.3-4.6); Glomerular Filtration Rate 63.2 mL/min (90-130); Glucose 124 mg/dL (65-115); Osmolality Calculated 292 mOsm/kg (285-295); Sodium 139 mmol/L (136-145); Total Bilirubin 0.3 mg/dL (0.15-1.2); Total Protein 6.9 g/dL (6.6-8.7)
[2020-08-19 04:10] LABS: Aspartate Amino Transferase 21 U/L (0-32)
--- NOTE | 2020-08-19 04:17 | ECG_ITS ---
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 Measurements Intervals [place] Rate: 80 P: 66 IN: 152 QRS: 70 QRSD: 97 T: 64 QT: 393 QTc: 454 Interpretive Statements SINUS RHYTHM No previous ECG available for comparison Electronically Signed On 08-19-2020 17:19:22 CDT by Ross Alicia M.D. [id number]
--- NOTE | 2020-08-19 04:32 | CTR_ITS ---
PROCEDURE INFORMATION: Exam: CT Abdomen And Pelvis Without Contrast Exam date and time: 08/19/2020 4:32 AM Age: 65 years old Clinical indication: Other: Hematuria; Prior surgery; Surgery date: 6+ months; Surgery type: Gb; Additional info: Hematuria, UTI TECHNIQUE: Imaging protocol: Computed tomography of the abdomen and pelvis without contrast. Radiation optimization: All CT scans at this facility use at least one of these dose optimization techniques: automated exposure control; mA and/or kV adjustment per patient size (includes targeted exams where dose is matched to clinical indication); or iterative reconstruction. COMPARISON: No relevant prior studies available. RADIATION DOSE METRICS: Total DLP (mGy-cm): 1839.18 FINDINGS: Lungs: The lung bases are clear. Mediastinal space: Small hiatal hernia. There may be some mucosal/wall thickening involving the lower esophagus. This is nonspecific, but could represent evidence for esophagitis. Neoplasm not entirely excluded. Please correlate clinically. Liver: Unremarkable. Gallbladder and bile ducts: Prior cholecystectomy, no significant biliary tree dilation. Pancreas: Unremarkable. Spleen: Unremarkable. Adrenal glands: Unremarkable. Kidneys and ureters: No hydronephrosis of either kidney. No visible renal or ureteral calculus. No perinephric fluid. Normal appearance of the kidneys on noncontrast CT does not entirely exclude the diagnosis of acute pyelonephritis. Please correlate with clinical and laboratory evaluation. Stomach and bowel: Several proximal small bowel loops in the left abdomen are fluid filled and borderline prominent in size, but the overall appearance is not suggestive of significant small bowel obstruction at this time. This appearance could be secondary to some form of gastroenteritis. Please correlate clinically. If there is clinical suspicion for small bowel obstruction, follow-up may be helpful to exclude progression. There are no CT findings to strongly suggest diverticulitis. 7 mm probable lipoma in the wall of the proximal descending colon. Appendix: The appendix is visualized and appears normal. Intraperitoneal space: No free intraperitoneal air, or ascites. Vasculature: No evidence for abdominal aortic aneurysm. Lymph nodes: No retroperitoneal adenopathy. Urinary bladder: The urinary bladder appears essentially unremarkable by CT. Reproductive: Apparent prior hysterectomy. No definite ovarian/adnexal cyst or mass by CT. Bones/joints: Moderate degenerative changes in the lower lumbar spine. Soft tissues: No significant acute finding. CT/CT kidney stone [id number] IMPRESSION: 1. No hydronephrosis of either kidney. No visible renal or ureteral calculus. No perinephric fluid. See above discussion. 2. Normal appendix. 3. Several proximal small bowel loops are fluid filled and borderline prominent in size, see above discussion. This appearance could be secondary to some form of gastroenteritis. 4. Small hiatal hernia. Possibly some thickening of the lower esophagus, see above discussion. 5. Other findings discussed above. Radiation Dose CTDIVOL = (mGy): DLP = 1839.18 (mGy-cm)
[2020-08-19 04:54] LABS: Troponin 5 2HR 13.07 ng/L (0-10); Troponin 5 2HR Delta 2.07 ABS# (0-10)
[2020-08-19] MEDS: lidocaine 2% viscous 15 ML, aluminum-mag hydrox-simethicon 30 ML, sucralfate oral liq 1 GM PO (05:10)
[2020-08-19] MEDS: LORazepam 2 mg/mL INJ 1 mL 0.5 MG IVP (05:11)
[2020-08-19] MEDS: cefTRIAXone 1,000 MG in sodium chloride 0.9% (plus) 50 ML 100 MG IV (05:12)
[2020-08-19] MEDS: sodium chloride 0.9% 1,000 ML 999 ML IV (05:12)
[2020-08-19] MEDS: meclizine 25 mg tablet PO (05:14)
[2020-08-19 06:44] VITALS: BP 142/84; PULSE 75; RESP 18; TEMP 37; O2SAT 95
== END 2020-08-19 07:00 | disposition home or self-care (01) ==
PROVIDERS: Nurse Practitioner Family; Emergency Provider Emergency Medicine; PCP Family Medicine
DX: N30.01 Acute cystitis with hematuria (principal); H81.21 Vestibular neuronitis, right ear
CPT/HCPCS: 70450; 74176; 80053; 81001; 84484; 85025; 87086; 93005; 96365; 96375; 99283; J0696; J2060; J7030; J8597

== ENCOUNTER 2020-12-31 10:08 | Observation (INO) | payer BC, SELFPAY ==
[2020-12-31] VITALS (10 sets, daily range): BP systolic 104–148; BP diastolic 62–88; PULSE 70–80; RESP 16–21; TEMP 36.6–37; O2SAT 96–99; BMI 41.1
--- NOTE | 2020-12-31 11:09 | XR_ITS ---
WS: [id number] PORTABLE CHEST HISTORY: chest pain COMPARISON: 09/08/2011 Lungs are clear and well expanded. No pleural effusion or pneumothorax. Cardiac size: Normal. Mediastinum/Aorta: Normal mediastinum. No osseous abnormality seen. XR/XR chest 1V portable [id number] IMPRESSION: Unremarkable portable chest.
[2020-12-31] MEDS: aspirin 325 mg Tablet PO (11:19)
--- NOTE | 2020-12-31 11:42 | ED_ITS ---
HPI - General Adult General: Chief complaint: Chest Pain Stated complaint: Chest Pain Time Seen by Provider: 12/31/20 11:04 History of Present Illness: HPI narrative: CC: Chest Pain HPI: This is a [65] yo patient hx of HTN, HLD presenting to the ED complaining of acute sudden onset intermittent squeezing chest pain with radiation to the back x 4 episodes lasting for 10-15 minutese ach. No associated with shortness of breath, chest pain or dyspnea on exertion. Pain is not tearing in nature and does not radiate to the back. Pain not associated with vomiting or PO intake. Denies any recent sympathomimetic drug use. Patient denies any cough. Denies palpitations, dysphagia, diaphoresis, radiation of pain to bilateral arms, jaw. Denies F/N/V/D. Patient denies any recent immobility, surgery, unilateral leg swelling, or prior PE. Patient denies any orthopnea. Onset: [1] days ago Duration: ongoing for the last 1 days Location: home Severity: mild/moderate Review of Systems Narrative: Constitutional: No fever, no chills. HEENT: No vision changes, no sore throat. CV: +chest pain, no palpitations. PULM: No cough, No dyspnea. GI: No abdominal pain, no N/V/D. : No dysuria, no frequency, no hematuria. MSKEL: No arthralgias, no edema. SKIN: No new rashes, no lesions. NEURO: No headache, no focal weakness. HEME: No easy bleeding or bruising. PSYCH: No change in mood or affect. Physical Exam Narrative: EXAM NARRATIVE: Head: Atraumatic, normocephalic Eyes: PERRL, EOMI, conjunctiva without injection ENT: Throat without erythema, lesions or exudate, MMM NECK: Supple, trachea midline, no JVD LUNGS: LCTA CV: RRR, S1,S2, no murmurs, rubs, gallops. 2+ peripheral pulses in UEs ABDOMEN: Soft, nontender, nondistended, BS x4, no rigidity, no guarding, no rebound EXTREMITY: Normal ROM, no pitting edema, no calf tenderness to palpation SKIN: No rash or erythema NEURO: Awake and alert. No focal motor deficits. PSYCH: Normal mood and affect. Course Vital Signs: Vital signs: Vital Signs Temperature 98.6 F 12/31/20 10:21 Pulse Rate 73 12/31/20 13:00 Respiratory Rate 21 H 12/31/20 13:00 Blood Pressure 148/81 12/31/20 13:00 Pulse Oximetry 98 12/31/20 13:00 MDM - General Adult MDM Narrative: Medical decision making narrative: [813]yo patient w/ hx of HTN, HLD presenting to the ED with evaluation of persistent pressure chest pain x 4 episodes. HDS, pulse 2+ radially bilaterally, no signs of fluid overload, AAOx3, neuro exam intact. Given History and Exam today I have no suspicion for ACS, Pneumothorax, Pneumonia, Pulmonary Embolus, Tamponade, Aortic Dissection or other emergent problems as a cause for this presentation. Workup: ECG, CXR, CBC, BMP, Troponin Interventions: ASA Findings: ECG: No overt evidence of STEMI, hyperacute T waves, localizable STD or T wave inversions. No evidence of Brugada?s sign, delta wave, epsilon wave, significantly prolonged QTc, or malignant arrhythmia. No Q waves. Other Labs unremarkable for emergent problems. CXR: Without PTX, PNA, or widened mediastinum Last Stress Test: never Last Heart Catheterization: never HEART Score: 4 [12:41] On reassessment, the patient is HDS, no complaints of persistent chest pain in the ED after evaluation. ECG is non-ischemic. Workup today is unremarkable. Doubt ACS/PE or other emergent causes of chest pain. Patien will be admitted for observation and chest pain workup Lab Data: Labs: Lab Results 12/31/20 12/31/20 12/31/20 11:20 11:20 11:20 WBC 10.7 10^3/uL H 10 ^3/uL (4.0-10.0) RBC 4.43 10^6/uL 10^6 /uL (4.1-5.3) Hgb 12.4 g/dL g/dL (11.5-15.3) Hct 38.7 % % (37.0-47.0) MCV 87.4 fl fl (81-99) MCH 28.0 pg pg (28.0-34.0) MCHC 32.0 g/dL g/dL (30.0-36.0) RDW 13.9 % % (12.1-15.1) Plt Count 319 10^3/cmm 10^3 /cmm (130-400) MPV 10.4 fL fL (7.4-10.4) Neut % (Auto) 71.5 % % Lymph % (Auto) 16.6 % % [place] % (Auto) 8.3 % % Eos % (Auto) 2.4 % % Baso % (Auto) 0.7 % % Neut # (Auto) 7.65 10^3/uL 10^3 /uL (1.8-7.7) Lymph # (Auto) 1.8 10^3/uL 10^3/ uL (0.8-4.8) [place] # (Auto) 0.9 10^3/uL 10^3/ uL (0.2-0.9) Eos # (Auto) 0.3 10^3/uL 10^3/ uL (0.0-0.8) Baso # (Auto) 0.1 10^3/uL 10^3/ uL (0.0-0.1) Nucleated RBC % (a uto) 0 % % Nucleated RBCs # 0.0 /100WBC /100W BC Sodium 140 mmol/L mmol/L (136-145) Potassium 4.1 mmol/L mmol/L (3.5-5.1) Chloride 100 mmol/L mmol/L (98-107) Carbon Dioxide 30 mmol/L H mmol/ L (22-29) Anion Gap 14.1 (5-19) BUN 18 mg/dL mg/dL (8-23) Creatinine 0.6 mg/dL mg/dL (0.5-0.9) GFR Calculation 101.0 mL/min mL/m in (90-130) Glucose 99 mg/dL mg/dL (65-115) Calculated Osmolal ity 292 mOsm/kg mOsm/ kg (285-295) Calcium 9.3 mg/dL mg/dL (8.5-10.5) Troponin T Baselin e 6 ng/L ng/L (0-10) Troponin T 120 Min [place] Delta Troponin T 12/31/20 13:20 WBC RBC Hgb Hct MCV MCH MCHC RDW Plt Count MPV Neut % (Auto) Lymph % (Auto) [place] % (Auto) Eos % (Auto) Baso % (Auto) Neut # (Auto) Lymph # (Auto) [place] # (Auto) Eos # (Auto) Baso # (Auto) Nucleated RBC % (a uto) Nucleated RBCs # Sodium Potassium Chloride Carbon Dioxide Anion Gap BUN Creatinine GFR Calculation Glucose Calculated Osmolal ity Calcium Troponin T Baselin e Troponin T 120 Min [place] 6.18 ng/L ng/L (0-10) Delta Troponin T 0.18 ABS# ABS# (0-10) Imaging Data^: Other Imaging: Radiologist's impression: [address] [id number] ReportSigned Patient: Remberto Mendez #: [id number]: 1955cct#:[id number]/Sex: 65 / FADM Date: 12/31/20Loc: ERRoom/B ed:Attending Dr: Ordering Provider/Ordering MD: Taryn Rapp MD Date of Service: 12/31/20 Procedure(s): XR chest 1V portable [id number] Accession Number(s): [id number] Report Number: [id number] WS: [id number] PORTABLE CHEST HISTORY: chest pain COMPARISON: 09/08/2011 Lungs are clear and well expanded. No pleural effusion or pneumothorax. Cardiac size: Normal. Mediastinum/Aorta: Normal mediastinum. No osseous abnormality seen. XR/XR chest 1V portable [id number] IMPRESSION: Unremarkable portable chest. Dictated By:Summer Crowder DOSigned By:Summer Crowder DOSigned Date/Time:12/31/20 1143DD/ 1142 Discharge Plan Discharge Patient Disposition: Admitted As Inpatient Clinical Impression: Chest pain Condition: Stable Coding Level of Care Code ED Retail Sales Lead for Eva Galvan
[2020-12-31 11:56] LABS: Troponin(5th) Baseline 6 ng/L (0-10)
[2020-12-31 11:57] LABS: Anion Gap 14.1 (5-19); Blood Urea Nitrogen 18 mg/dL (8-23); Calcium 9.3 mg/dL (8.5-10.5); Carbon Dioxide 30 mmol/L (22-29); Chloride 100 mmol/L (98-107); Glucose 99 mg/dL (65-115); Osmolality Calculated 292 mOsm/kg (285-295); Potassium 4.1 mmol/L (3.5-5.1); Sodium 140 mmol/L (136-145)
[2020-12-31 12:04] LABS: Basophils # 0.1 10^3/uL (0.0-0.1); Basophils % 0.7 %; Eosinophils # 0.3 10^3/uL (0.0-0.8); Eosinophils % 2.4 %; Hematocrit 38.7 % (37.0-47.0); Hemoglobin 12.4 g/dL (11.5-15.3); Lymphocytes # 1.8 10^3/uL (0.8-4.8); Lymphocytes % 16.6 %; Mean Corpuscular Volume 87.4 fl (81-99); Mean Platelet Volume 10.4 fL (7.4-10.4); Monocytes # 0.9 10^3/uL (0.2-0.9); Monocytes % 8.3 %; Neutrophils # 7.65 10^3/uL (1.8-7.7); Neutrophils % 71.5 %; Nucleated Red Blood Cells % 0 %; Platelet Count 319 10^3/cmm (130-400); Red Blood Count 4.43 10^6/uL (4.1-5.3); Red Cell Distribution Width 13.9 % (12.1-15.1); White Blood Count 10.7 10^3/uL (4.0-10.0)
--- NOTE | 2020-12-31 13:09 | ECG_ITS ---
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 Measurements Intervals [place] Rate: 66 P: 55 UT: 161 QRS: 53 QRSD: 94 T: 48 QT: 400 QTc: 421 Interpretive Statements SINUS RHYTHM WITH SINUS ARRHYTHMIA Compared to ECG 08/19/2020 04:26:02 No significant changes Electronically Signed On 12-31-2020 20:10:47 MORTGAGE CLOSER by Melisa Root M.D. [id number]
[2020-12-31 14:16] LABS: Troponin 5 2HR 6.18 ng/L (0-10); Troponin 5 2HR Delta 0.18 ABS# (0-10)
--- NOTE | 2020-12-31 16:30 | PC.NURSE ---
Patient states that she has had a manager contact for a week now. Dr. Dk Marshall his fax number is [phone]. Patient states this all started over the fact that she wanted to have gastric sleeve so she had an EKG for that and it was abnormal so she was sent to the manager contact and test were ordered for January 16 but she had chest pain over night last night and into this morning so she came to the ER.
--- NOTE | 2020-12-31 17:09 | ECG_ITS ---
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 Measurements Intervals [place] Rate: 76 P: 27 MS: 153 QRS: 52 QRSD: 90 T: 54 QT: 381 QTc: 429 Interpretive Statements SINUS RHYTHM Compared to ECG 12/31/2020 13:18:46 Sinus arrhythmia no longer present Electronically Signed On 12-31-2020 20:11:38 EVENT ORGANIZER by Melisa Root M.D. [email or web address] [id number]
--- NOTE | 2020-12-31 18:18 | PM.HP ---
Providers/Chief Complaint Admitting Physician: Blaise Avila MD Primary Care Provider: Devika Miller MD Chief Complaint: Chest Pain History of Present Illness Lala Mendez is a 65 year old female with past medical history hypertension, came in with chief complaint of chest tightness started radiation to the back x 4 episodes lasting for 10-15 minutes each since yesterday. Denies any shortness of breath or chest pain on exertion, denies any palpitation, diaphoresis, nausea vomiting dizziness. Denies any fever cough, recent sick contact. Denies any leg swelling Upon arrival in the ER she was worked up for above-mentioned. Pertinent imaging studies: X-ray chest: No effusion no infiltrates no pneumothorax. EKG: Sinus rhythm Pertinent labs: Troponin trend: Normal Review of Systems Const: Denies: fever(s), chills, body aches, change in appetite or diaphoresis Card: Denies: palpitations, edema, swelling of feet/ankles, dyspnea on exertion, orthopnea or leg pain with exertion Resp: Denies: dyspnea, productive cough, wheezing or pain on inspiration GI: Denies: abdominal pain, nausea, vomiting, diarrhea or constipation : Denies: flank pain Musc: Denies: back pain, extremity pain or extremity swelling Neuro: Denies: headache(s), difficulty walking or confusion Medications/Allergies Home Medications Medication Instructions Recorded Confirmed Last Taken Type Collagen Tabs 3 tab PO BID 12/31/20 12/31/20 Unknown History calcium carbonate-vitamin D3 1 tab PO BID 12/31/20 12/31/20 Unknown History [Calcium + D] cholecalciferol (vitamin D3) 10 mcg PO BID 12/31/20 12/31/20 Unknown History [Vitamin D3] famotidine 20 mg PO BID 12/31/20 12/31/20 12/31/20 07:15 History lisinopril 10 mg PO QAM 12/31/20 12/31/20 12/31/20 07:15 History multivitamin 1 tab PO DAILY 12/31/20 12/31/20 Unknown History oxybutynin chloride 10 mg PO QAM 12/31/20 12/31/20 12/31/20 07:15 History polyethylene glycol 3350 [Miralax] 17 g PO DAILY PRN 12/31/20 12/31/20 Unknown History sertraline 150 mg PO QAM 12/31/20 12/31/20 12/31/20 07:15 History simvastatin 20 mg PO QPM 12/31/20 12/31/20 12/30/20 History Allergies Allergy/AdvReac Type Severity Reaction Status Date / Time esomeprazole [From Nexium] Allergy ALGY-Hives Verified 12/31/20 13:45 Penicillins Allergy Unknown Verified 12/31/20 13:45 Vitals/I&O/Wt Last Vital Signs Temp 97.9 F 12/31/20 16:45 Pulse 72 12/31/20 16:45 Resp 16 12/31/20 16:45 BP 125/71 12/31/20 16:45 Pulse Ox 98 12/31/20 16:45 12/31/20 12/31/20 12/31/20 06:59 14:59 22:59 Intake Total 480 / 480 Balance 480 / 480 Weight last 48 hrs Weight 105.233 kg Physical Exam Const: COMMON NORMALS: patient oriented x3 HENMT: COMMON NORMALS: normocephalic and atraumatic HEAD & SCALP: normocephalic and atraumatic EXTERNAL EAR: Yes external ears normal Eye: COMMON NORMALS: no scleral icterus Resp: COMMON NORMALS: normal respiratory effort, No retractions and clear to auscultation bilaterally AUSCULTATION: clear to auscultation bilaterally Cardio: COMMON NORMALS: regular rate, regular rhythm, S1 normal heart sound present, S2 normal heart sound present, No gallops present (Cardio), No murmurs present (Cardio), No rub (Cardio) and Peripheral pulses 2+ throughout RATE: regular rate RHYTHM: regular rhythm HEART SOUNDS: S1 normal heart sound present and S2 normal heart sound present PERIPHERAL PULSES: Peripheral pulses 2+ throughout GI: COMMON NORMALS: Normal to inspection, nondistended, normoactive bowel sounds present, Soft to palpation, non-tender and no masses AUSCULTATION: Yes normoactive bowel sounds PALPATION: Yes Soft to palpation and Yes No hepatosplenomegaly present RECTAL EXAM: deferred Extremity: COMMON NORMALS: no clubbing, cyanosis or edema and no pedal edema Neuro: COMMON NORMALS: patient oriented x3 Data : 12/31/20 11:20 12/31/20 11:20 A&P Assessment and plan (1) Chest pain: Patient chief complaint of chest tightness started radiation to the back x 4 episodes lasting for 10-15 minutes each since yesterday. Risk factors for possible cardiac chest pain include morbid obesity, hypertension. 2D echo Telemetry Nuclear stress test in a.m. We will start her on aspirin statin, continue lisinopril, sublingual nitro as needed Status: Acute (2) Hypertension: Status: Acute (3) Sleep apnea: Status: Acute Attestations Medical Necessity Statement*: Patient is in hospital for chest pain evaluation and management. Coding Level of Care Code Acute Panel Machine Tender for Eva Galvan Diagnoses Chest pain R07.9 Hypertension I10 Sleep apnea G47.30
[2020-12-31 18:36] LABS: Troponin 5 6HR 7.87 ng/L (0-10); Troponin 5 6HR Delta 1.87 ng/L (0-12)
[2020-12-31] MEDS: enoxaparin 40 mg/0.4 mL Syringe SUBCUT (18:48)
--- NOTE | 2020-12-31 18:51 | PC.NURSE ---
Report to Lara COLON at this time.
[2021-01-01] VITALS (9 sets, daily range): BP systolic 109–118; BP diastolic 56–73; PULSE 70–85; RESP 16–22; TEMP 36.6–37.3; O2SAT 92–96
[2021-01-01] MEDS: sertraline 100 mg Tablet 150 MG PO (05:05)
[2021-01-01] MEDS: lisinopril 10 mg Tablet PO (05:05)
[2021-01-01 06:13] LABS: Basophils # 0.1 10^3/uL (0.0-0.1); Basophils % 0.8 %; Eosinophils # 0.3 10^3/uL (0.0-0.8); Eosinophils % 2.5 %; Hematocrit 37.8 % (37.0-47.0); Lymphocytes % 18.9 %; Mean Corpuscular HGB Conc 31.7 g/dL (30.0-36.0); Mean Corpuscular Volume 88.3 fl (81-99); Mean Platelet Volume 10.2 fL (7.4-10.4); Monocytes # 0.9 10^3/uL (0.2-0.9); Monocytes % 8.6 %; Neutrophils # 7.32 10^3/uL (1.8-7.7); Neutrophils % 68.7 %; Nucleated Red Blood Cells % 0 %; Platelet Count 305 10^3/cmm (130-400); Red Blood Count 4.28 10^6/uL (4.1-5.3); Red Cell Distribution Width 13.7 % (12.1-15.1); White Blood Count 10.7 10^3/uL (4.0-10.0)
[2021-01-01 06:38] LABS: Alanine Aminotransferase 14 U/L (0-33); Alkaline Phosphatase 69 IU/L (35-105); Aspartate Amino Transferase 14 U/L (0-32); Blood Urea Nitrogen 20 mg/dL (8-23); Calcium 9.2 mg/dL (8.5-10.5); Carbon Dioxide 27 mmol/L (22-29); Chloride 99 mmol/L (98-107); Globulin 2.5 g/dL (1.3-4.6); Glomerular Filtration Rate 84.5 mL/min (90-130); Glucose 112 mg/dL (65-115); Osmolality Calculated 291 mOsm/kg (285-295); Sodium 139 mmol/L (136-145); Total Bilirubin 0.3 mg/dL (0.15-1.2); Total Protein 6.5 g/dL (6.6-8.7)
--- NOTE | 2021-01-01 06:57 | ECG_ITS ---
[facility] Test Date: 2021-01-01 Pat Name: Lala Mendez Department: Room: 262 Gender: Female [employer] Inspector: : 1955 Requested By: Blaise Avila Order Number: [id number] Reanna MD: ROSEANN SAUCEDA Interpretive Statements NAME OF STUDY: LEXISCAN SESTAMIBI STRESS TEST INDICATION: Chest Pain NOTE: Please note that this is the electrocardiogram portion of the Lexiscan/Sestamibi stress test. The perfusion scan will be documented separately. DATA: Baseline heart rate was 69 beats per minute. Baseline blood pressure was 122/68 millimeters of mercury. Target heart rate was 157. Maximum heart rate achieved was 104. which was 66 % of the predicted target heart rate. Maximum blood pressure was 122/68 millimeters of mercury. The reason for ending the test was completion of the protocol. The patient did not experience any symptoms. ELECTROCARDIOGRAM: BASELINE: Sinus rhythm. Normal axis. Otherwise, no ST-T changes suggestive of ischemia noted. No arrhythmia noted. EXERCISE: After Lexiscan injection, no ST-T changes suggestive of ischemic noted. No arrhythmia noted. 1. EKG not suggestive of ischemia 2. Lexiscan injection unremarkable. 3. Perfusion scan will be documented separately. 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
--- NOTE | 2021-01-01 06:58 | NMCV_ITS ---
NM vanita perf SPECT r/s* [id number] Lala Mendez Age: 65 Gender: F : 1955 Exam Date: 01/01/2021 10:45 Ordering Phys: Blaise Avila MD Technologist: KATIE Rizzo Exam Location: [facility] Indications: CHEST PAIN STRESS TEST [facility] IMAGE PROTOCOL Rest/Stress 1 Lexiscan Day Radiopharmaceutical Dose (mCi) Administration Site Administered by Rest: Tc-99m 11.0 IV KATIE Rizzo Sestamibi Stress:Tc-99m 32.9 IV KATIE Koch Sestamibi Rest: 01-Jan-2021 60 Discovery 630 Stress: 01-Jan-2021 30 Discovery 630 0.4mg Lexiscan. Images obtained in supine and prone position. SPECT RESULTS Technical Quality: Excellent Raw Data Analysis: Normal Image Corrections: No attenuation or motion correction applied Summed Stress Score: 4 Summed Rest Score: 0 Summed Difference Score: 4 PERFUSION FINDINGS Small area of fixed perfusion defect surrounded by medium size area of moderate reversibility noted in mid to distal anterior wall suggestive of ischemia in LAD territory, please note that patient was not able to perform the prone images therefore cannot rule out artifact. FUNCTIONAL RESULTS (calculated via Gated SPECT) Stress Image LV EF (%): 75 Stress EDV (mL):80 TID: 1.22 Stress ESV (mL):20 Rest Image LV EF (%): 75 FUNCTIONAL FINDINGS: There is normal left ventricular systolic function. IMPRESSIONS Small area of fixed perfusion defect surrounded by medium size area of moderate reversibility noted in mid to distal anterior wall suggestive of ischemia in LAD territory, please note that patient was not able to perform the prone images therefore cannot rule out artifact. TID ratio was elevated 1.2 which could be secondary to left ventricle hypertrophy however cannot rule out multivessel coronary artery disease. EKG segment will be documented separately. Alberto Weber MD (Electronically Signed) Final Date: 01 January 2021 14:39 S
[2021-01-01] MEDS: regadenoson 0.4 Mg/5 ml Syringe IVP (11:26)
--- NOTE | 2021-01-01 11:30 | PC.NURSE ---
Patient down for stress test.
--- NOTE | 2021-01-01 15:40 | PC.SOCIAL ---
per Dr Avila, pt will not be DC today
--- NOTE | 2021-01-01 17:11 | PM.CONSULT ---
Providers/Reason For Consult Consulting Physician/Specialty*: Ross Alicia MD/ Cardiology Reason for Consult*: Abnormal stress test/chest pain Requesting Physician: Dr Avila Attending Physician: Blaise Avila MD Primary Care Provider: Devika Miller MD History of Present Illness History of Present Illness Lala Mendez is a 65 year old female with past medical history of hypertension presented with chest tightness and pressure that was radiating to the back. This has been going on for the last 1 day. On and off and each episode lasts for about 10 to 15 minutes. She underwent a nuclear stress test that showed possible ischemia and LAD territory. Troponins have not trended up. EKG did not reveal ischemic changes. Echo shows normal LV systolic function with mild mitral regurgitation. Mild pulmonary hypertension is also noted. She does not have any history of coronary artery disease. Review of Systems Const: Denies: fever(s), chills, body aches, change in appetite or diaphoresis Eyes: Denies: change in vision ENMT: Denies: throat pain Card: Denies: palpitations, edema, swelling of feet/ankles, dyspnea on exertion, orthopnea or leg pain with exertion Resp: Denies: dyspnea, productive cough, wheezing or pain on inspiration GI: Denies: abdominal pain, nausea, vomiting, diarrhea or constipation : Denies: flank pain Musc: Denies: back pain, extremity pain or extremity swelling Neuro: Denies: headache(s), difficulty walking or confusion Meds/Allergies Home Medications and Allergies Home Medications Medication Instructions Recorded Confirmed Last Taken Type Collagen Tabs 3 tab PO BID 12/31/20 12/31/20 Unknown History Miralax 17 g PO DAILY PRN 12/31/20 12/31/20 Unknown History Vitamin D3 10 mcg PO BID 12/31/20 12/31/20 Unknown History calcium carbonate-vitamin D3 1 tab PO BID 12/31/20 12/31/20 Unknown History famotidine 20 mg PO BID 12/31/20 12/31/20 12/31/20 07:15 History lisinopril 10 mg PO QAM 12/31/20 12/31/20 12/31/20 07:15 History multivitamin 1 tab PO DAILY 12/31/20 12/31/20 Unknown History oxybutynin chloride 10 mg PO QAM 12/31/20 12/31/20 12/31/20 07:15 History sertraline 150 mg PO QAM 12/31/20 12/31/20 12/31/20 07:15 History simvastatin 20 mg PO QPM 12/31/20 12/31/20 12/30/20 History Allergies Allergy/AdvReac Type Severity Reaction Status Date / Time esomeprazole [From Nexium] Allergy ALGY-Hives Verified 12/31/20 13:45 Penicillins Allergy Unknown Verified 12/31/20 13:45 Current Medications Current Medications Generic Name Dose Route Start Last Admin Trade Name Caleb PRN Reason Stop Dose Admin Aspirin 81 mg 01/01/21 09:00 01/01/21 10:51 Aspirin 81 Mg Ec Tablet PO Not Given DAILY MIQUEL Enoxaparin Sodium 40 mg 12/31/20 18:15 12/31/20 18:48 Enoxaparin 40 Mg/0.4 Ml Syringe SUBCUT 40 mg Q24H MIQUEL Administration Famotidine 20 mg 01/01/21 09:00 01/01/21 10:51 Famotidine 20 Mg Tablet PO Not Given BID MIQUEL Lisinopril 10 mg 01/01/21 06:00 01/01/21 05:05 Lisinopril 10 Mg Tablet PO 10 mg QAM MIQUEL Administration Non-Formulary Medication 1 tab 01/01/21 09:00 01/01/21 10:51 Calcium Carbonate-Vitamin D3 PO Not Given BID MIQUEL Sertraline HCl 150 mg 01/01/21 06:00 01/01/21 05:05 Sertraline 100 Mg Tablet PO 150 mg QAM MIQUEL Administration PFSH Acute PFSH: Medical History (Updated 01/15/21 @ 11:39 by Ross Alicia M.D) Chest pain Hypertension Family History Other Hypertension Vitals/I&O/Wt Last Vital Signs Temp 98.4 F 01/01/21 15:36 Pulse 85 01/01/21 15:36 Resp 16 01/01/21 15:36 BP 110/70 01/01/21 15:36 Pulse Ox 96 01/01/21 15:36 01/01/21 01/01/21 01/01/21 06:59 14:59 22:59 Output Total 360 / 360 Balance -360 / 120 Weight last 48 hrs Weight 232 lb Physical Exam Narrative: EXAM NARRATIVE: GENERAL: Patient is alert, awake and oriented x3. [] NECK: No jugular vein distension. [] HEENT: No cyanosis. No icterus. No pallor. [] HEART: Regular S1 and S2. No murmur, rub or gallop. [] LUNGS: Clear to auscultate bilaterally. [] ABDOMEN: Soft, nontender and nondistended. Positive bowel sounds. No guarding, rebound or tenderness. [] CENTRAL NERVOUS SYSTEM: Grossly nonfocal. [] EXTREMITIES: Lower extremities with no edema bilaterally. Pulses palpable in the lower extremities, both dorsalis pedis and posterior tibial. [] A&P Assessment and plan (1) Hypertension: Status: Acute (2) Chest pain: Status: Acute (3) Abnormal stress test: Status: Acute Patient has been having chest pain no symptoms over the last 2 days. Features are of typical pain. Given her abnormal stress test, we will proceed with coronary angiogram. Risks and benefits of the procedure have been discussed with the patient. She understands the risks and benefits and wants to proceed with the procedure. Continue aspirin. N.p.o. past midnight. Thank you for involving us with care of this patient. We will continue to follow. Please call with questions. Coding Level of Care Code Acute Sprue Knocker for Eva Galvan Diagnoses Hypertension I10 Chest pain R07.9 Abnormal stress test R94.39
[2021-01-01] MEDS: famotidine 20 mg Tablet PO (17:35)
[2021-01-01] MEDS: enoxaparin 40 mg/0.4 mL Syringe SUBCUT (17:35)
[2021-01-01] MEDS: atorvastatin 40 mg Tablet 20 MG PO (17:35)
--- NOTE | 2021-01-01 18:18 | USCV_ITS ---
Lala Mendez Age: 65 Gender: F : 1955 Exam Date: 01/01/2021 14:26 Ordering Phys: Blaise Avila MD Technologist: EMILIO Exam Location: [facility] Indication: CHEST PAIN BP: 109 / 73 HR: 74 Rhythm: Sinus Technical Quality: Adequate MEASUREMENTS (Male / Female) Normal Values 2D ECHO LV Diastolic Diameter PLAX 4.5 cm 4.2 - 5.9 / 3.9 - 5.3 cm LV Systolic Diameter PLAX 3.0 cm IVS Diastolic Thickness 1.2 cm 0.6 - 1.0 / 0.6 - 0.9 cm IVS Systolic Thickness 1.7 cm LVPW Diastolic Thickness 1.3 cm 0.6 - 1.0 / 0.6 - 0.9 cm LVPW Systolic Thickness 1.7 cm RV Chamber Size 3.4 cm LVOT Diameter 2.0 cm LV Ejection Fraction 2D Teich 59.8 % LV Ejection Fraction MOD 2C 65.1 % LV Ejection Fraction 2C AL 66.2 % LA Diameter 3.8 cm LA Width 3.1 cm LA Height 3.9 cm RA Width 3.0 cm RA Height 4.3 cm Aorta at Sinotubular Diameter 2.1 cm M-MODE Aortic Annulus Diameter 2.9 cm LA Ao Ratio MM 1.4 MV E Point Septal Separation 0.6 cm DOPPLER AV Peak Velocity 174.0 cm/s LVOT Peak Velocity 164.0 cm/s AV Area Cont Eq vti 2.9 cm squared AV Area Cont Eq pk 3.0 cm squared MV Area PHT 3.5 cm squared Mitral E to A Ratio 0.7 MV E' Velocity 50.5 cm/s Mitral E to MV E' Ratio 13.8 Mitral E to LV E' Lateral Ratio 17.5 Mitral E to LV E' Septal Ratio 11.5 TR Peak Velocity 325.4 cm/s TR Peak Gradient 42.4 mmHg TR Mean Velocity 242.9 cm/s TR Mean Gradient 24.9 mmHg TR Velocity Time Integral 81.0 cm TV Peak E Velocity 50.0 cm/s Right Atrial Pressure 3.0 mmHg Pulmonary Artery Systolic Pressu 45.4 mmHg PV Peak Velocity 104.0 cm/s RV Acceleration Time 0.2 s RV Ejection Time 0.3 s RV AcT/ET 0.5 FINDINGS Left Ventricle Normal left ventricular size. LV systolic function is normal with EF of 55-60%. No regional wall motion abnormalities. Grade 1 diastolic dysfunction. Right Ventricle The right ventricle is normal in size and function. Right Atrium The right atrium is normal in size. Left Atrium The left atrium is normal in size. Mitral Valve Structurally normal mitral valve without significant stenosis or prolapse. There is trace mitral regurgitation. Aortic Valve Grossly normal aortic valve without significant stenosis. There is no aortic regurgitation. Tricuspid Valve Structurally normal tricuspid valve without significant stenosis. Mild tricuspid regurgitation. RVSP is 35-40mmHg. Mild pulmonary hypertension Pulmonic Valve Not well visualized Pericardium Normal pericardium without effusion. Aorta Normal ascending aorta dimension. CONCLUSIONS LV systolic function is normal with EF of 55-60% Grade 1 diastolic dysfunction Trace mitral regurgitation Mild tricuspid regurgitation Mild pulmonary hypertension No comparison studies are available Ross Alicia MD (Electronically Signed) Final Date: 02 January 2021 09:27 S
--- NOTE | 2021-01-01 18:54 | PC.NURSE ---
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
--- NOTE | 2021-01-01 20:12 | PM.PN ---
Subjective Subjective: Interval history: Currently she denies any chest pain, nuclear stress test done today tolerated the procedure well. Medications: Reviewed: Yes Vitals/I&O/Wt Last Vital Signs Temp 98.4 F 01/01/21 15:36 Pulse 85 01/01/21 15:36 Resp 16 01/01/21 15:36 BP 110/70 01/01/21 15:36 Pulse Ox 96 01/01/21 15:36 01/01/21 01/01/21 01/01/21 06:59 14:59 22:59 Intake Total 240 / 240 Output Total 360 / 360 Balance -360 / 120 240 / 240 Weight last 48 hrs Weight 105.233 kg Physical Exam Const: COMMON NORMALS: patient oriented x3 HENMT: COMMON NORMALS: normocephalic, atraumatic and external ears normal HEAD & SCALP: normocephalic and atraumatic EXTERNAL EAR: Yes external ears normal Eye: COMMON NORMALS: no scleral icterus Resp: COMMON NORMALS: normal respiratory effort, No retractions and clear to auscultation bilaterally AUSCULTATION: clear to auscultation bilaterally Cardio: COMMON NORMALS: regular rate, regular rhythm, S1 normal heart sound present, S2 normal heart sound present, No gallops present (Cardio), No murmurs present (Cardio), No rub (Cardio) and Peripheral pulses 2+ throughout RATE: regular rate RHYTHM: regular rhythm HEART SOUNDS: S1 normal heart sound present and S2 normal heart sound present PERIPHERAL PULSES: Peripheral pulses 2+ throughout GI: COMMON NORMALS: Normal to inspection, nondistended, normoactive bowel sounds present, Soft to palpation, non-tender and no masses AUSCULTATION: Yes normoactive bowel sounds PALPATION: Yes Soft to palpation RECTAL EXAM: deferred Extremity: COMMON NORMALS: no clubbing, cyanosis or edema and no pedal edema Neuro: COMMON NORMALS: patient oriented x3 Data : 01/01/21 05:41 01/01/21 05:41 A&P Assessment and plan (1) Chest pain: Patient chief complaint of chest tightness started radiation to the back x 4 episodes lasting for 10-15 minutes each since yesterday. Risk factors for possible cardiac chest pain include morbid obesity, hypertension. 2D echo: Telemetry Nuclear stress test: Small area of fixed perfusion defect surrounded by medium size area of moderate reversibility noted in mid to distal anterior wall suggestive of ischemia in LAD territory, please note that patient was not able to perform the prone images therefore cannot rule out artifact. We will start her on aspirin statin, continue lisinopril, sublingual nitro as needed. CAG in am Appreciate cardiology input Status: Acute (2) Hypertension: Status: Acute (3) Sleep apnea: Status: Acute Attestations Medical Necessity Statement*: Patient needs to be in hospital for management of chest pain awaiting coronary angiogram in the morning. Coding Level of Care Code Acute Information Security for Eva Galvan Diagnoses Chest pain R07.9 Hypertension I10 Sleep apnea G47.30
[2021-01-02] VITALS (12 sets, daily range): BP systolic 88–136; BP diastolic 62–88; PULSE 71–95; RESP 15–26; TEMP 36.6–37.1; O2SAT 94–96
--- NOTE | 2021-01-02 01:45 | PC.NURSE ---
Dr. Bennett notified of patient asking for something to help her sleep.
[2021-01-02] MEDS: diphenhydrAMINE 50 mg Capsule PO ×2 (01:53→08:10)
[2021-01-02] MEDS: lisinopril 10 mg Tablet PO (06:12)
[2021-01-02] MEDS: sertraline 100 mg Tablet 150 MG PO (06:12)
--- NOTE | 2021-01-02 07:37 | XACV_ITS ---
Exam Room: [facility] Ht: 160 cm Wt: 105 kg BSA: 2.22 m2 Gender: Female : 1955 Exam Priority: Routine Procedure(s): Procedure Description: Diagnostic procedure Procedure Description: Left Heart Catheterization Procedure Description: Left ventriculography Procedure Description: Coronary Angiography Diagnostic Cath Status: Urgent Diagnostic Findings * No disease noted in the Left Main, Left Anterior Descending, Right, or Circumflex coronary arteries. * Coronary angiography shows right dominance. * Indication: Chest pain/abnormal stress test. Conclusions 1. No disease noted in the Left Main, Left Anterior Descending, Right, or Circumflex coronary arteries. 2. Normal left ventricular systolic function. Ejection fraction of 55%. Recommendations * Aggressive risk factor control. * Outpatient cardiology follow-up in 4 weeks. Interventional RX Recommendation: medical therapy and/or counseling Diagnostic RX Recommendation: medical therapy and/or counseling Anticoagulation: Heparin Ventriculography Ejection Fraction: 55.0 % Pressures Phase:Rest AO : 72 / 55 ( 64 ) @ 8:53:00 AM 116 / 64 ( 85 ) @ 8:59:00 AM 116 / 64 ( 85 ) @ 8:59:00 AM LV : 131 / -1 / 21 @ 8:58:00 AM 129 / 3 / 23 @ 8:59:00 AM 129 / 2 / 22 @ 8:59:00 AM Valves Phase:DefaultPhase AV : 14.0 @ 11:04:45 AM AV Mean Gradient: 16.0 @ 11:04:45 AM Clinical Evaluation EBL: 5mL-10mL Procedural Details Procedure Consent Obtained. Admit Source: In Patient. Pre-Procedure Time Out. Identified patient by full name and date of as verbalized by the patient/guarantor. Does the consent match the physician's order: Yes. Accurate & Complete Informed Consent: Yes. Inpatient/Outpatient History & Physical on Chart: Yes. If H&P is completed, is and addenduem needed: N/A; If yes, is the addendum complete: N/A. Visualize and Verify Site with Patient/Guarantor: N/A. Relevant Radiology Images available: N/A. Pre-op teaching completed and patient verbalized understanding. The risks, benefits, and alternatives of sedation and/or procedure were discussed by physician. The patient agrees to continue. Procedure started. [facility] Clinical Fraility Score: 3: Managing Well. 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 Chest Pain Symptom Assessment: Atypical Angina. Correct patient, site and procedure confirmed by cath team. Current diagnosis: Chest Pain. PERRLA. Strong, equal hand commercial loan analyst bilaterally. Lungs clear x 5 lobes. IV Site on Arrival: 20 gauge in the left anticubital. Pre Procedural Pulses: bilateral radial was 2+. IV Fluids: 0.9% NaCl at KVO. 100 mL infused prior to cemetery laborer. Oxygen started at 2liters/min via nasal canula. right groin was prepped with chloroprep then draped in the usual sterile fashion. right radial was prepped with chloroprep then draped in the usual sterile fashion. Physician notified. Baseline sample Acquired. HR: 64 BPM. Physician arrived. Shanda Mcneal RN nurse advertising associate during procedure. Physician scrubbed in. Immediate Pre-Procedure Time Out. Correct Patient: Yes; Correct Procedure: Yes; Correct Site: Yes; Correct Patient Position: Yes; Correct Supplies: Yes; Dried Flammable Prep: N/A; Blood Products Available: N/A;. Lidocaine 1% infiltrated to the right radial. Arterial access obtained. A 5 estonian TIG catheter in over wire. Multiple views taken of left coronary artery. Catheter redirected to the RCA. Multiple views taken of right coronary artery. Catheter removed over the exchange wire. A 5 estonian Angled Pig catheter in over wire. EDP Sample taken: LV 131/-2,21; HR: 75 BPM; SpO2: 96%. LV gram performed in [place] @ 10 mL/second for a total of 30 mL. EDP Sample taken: LV 129/3,23; HR: 86 BPM; SpO2: 95%. Pullback taken: LV 129/2,22; AO 116/64(85); Mean: 16mmHg, Peak to Peak: 14mmHg, SEP: 10sec/min; HR: 86 BPM; SpO2: 95%. Catheter out. A TR Band was successful obtaining hemostatsis at the Right Radial artery insertion site. Patient's family updated. Post Procedure: Pulses reassessed and unchanged. PERRLA. Strong, equal hand commercial loan analyst bilaterally. No VTE prophylaxis required. Medication's Wasted: Lidocaine 1% = 18 mL. Medication's Wasted: Nitro = 49.8 mg. Medication's Wasted: Heparin = 1000 u. Total IV fluids: 250 mL. Post-op diagnosis: Non Obstructive CAD. Complications: none. Estimated blood loss: 5mL-10mL. Procedure completed. Patient transferred by wheelchair to 1st floor. Vital chart was stopped. Access Site Site: Right Radial artery Sheath Size: 6 Fr Hemostasis Method: TR Band Hemostasis Success: Successful Procedure Medications Start: 10:42 AM Stop: 10:42 AM Medication: Versed Amount: 1 mg Route: I.V. Start: 10:43 AM Stop: 10:43 AM Medication: Fentanyl Amount: 50 mcg Route: I.V. Start: 10:50 AM Stop: 10:50 AM Medication: Versed Amount: 1 mg Route: I.V. Start: 10:51 AM Stop: 10:51 AM Medication: Fentanyl Amount: 50 mcg Route: I.V. Start: 10:51 AM Stop: 10:51 AM Medication: Nitrogylcerin Amount: 200 mcg Route: I.A. Start: 10:52 AM Stop: 10:52 AM Medication: Heparin Amount: 5000 units Route: I.V. Start: 10:53 AM Stop: 10:53 AM Medication: 0.9% Saline Amount: 250 ml Route: I.V. bolus I, the attending physician, have reviewed and verified all procedure medications. Yes, all medications given per verbal order History/Risk Factors Hypertension: Yes Dyslipidemia: Yes Peripheral Arterial Disease (PAD): No Myocardial Infarction (AL): No Obesity: Yes Prior Interventions PCI: No CABG: No Valve Surgery: No Report Signatures Finalized by Ross Alicia MD on 01/15/2021 11:50 AM
[2021-01-02] MEDS: sodium chloride 0.9% 1,000 ML 50 ML IV (08:10)
[2021-01-02] MEDS: famotidine 20 mg Tablet PO (08:10)
[2021-01-02] MEDS: aspirin 81 mg EC Tablet PO (08:11)
--- NOTE | 2021-01-02 10:45 | W.PM.OPSUD ---
Surgery/Procedure H&P Update DATE OF PROCEDURE: January 02, 2021 DATE H&P PERFORMED: 01/01/21 H&P UPDATE INFORMATION: I have reviewed H&P completed within last 30 days, I have examined patient prior to procedure and No changes to prior documentation PREOP DIAGNOSIS: Chest pain/abnormal stress test PRIMARY INDICATION FOR PROCEDURE: Chest pain/abnormal stress test PLANNED PROCEDURE: Left heart cath with possible percutaneous coronary intervention PATIENT REASSESSED PRIOR TO SEDATION, WITH NO CHANGE NOTED: Yes PHYSICAL EXAM: alert, oriented x 3, clear to auscultation bilaterally and regular rate & rhythm AIRWAY EVAL/ANESTHESIA PLAN: ASA III, Monitored Anesthesia, Local Anesthesia, Risks, benefits & alternatives of sedation and/or procedure discussed and Patient agrees to continue as planned
--- NOTE | 2021-01-02 14:00 | PC.NURSE ---
TR band removed per protocol no adverse events noted
--- NOTE | 2021-01-02 15:31 | PC.NURSE ---
Discharge Note Patient discharged to Home via private vehicle accompanied by family. Discharge instructions reviewed with patient and/or underwriting account representative. Mobile pharmacy medications and/or prescriptions provided. Belongings/home medications returned.
--- NOTE | 2021-01-02 16:13 | P.DS_ITS ---
Discharge Providers Date of Admission: 12/31/20 14:39 Date of Discharge: January 02, 2021 Attending Provider at Admission: Blaise Avila MD Attending Provider at Discharge: Blaise Avila MD Primary Care Provider: Devika Miller MD Diagnoses at Discharge Discharge Diagnosis (1) Chest pain: Status: Resolved (2) Hypertension: Status: Acute (3) Sleep apnea: Status: Acute Reason for Visit Reason for Visit: Chest Pain Hospital Course Hospital Course Lala Mendez is a 65 year old female with past medical history hypertension, came in with chief complaint of chest tightness started radiation to the back x 4 episodes lasting for 10-15 minutes each since yesterday. Denies any shortness of breath or chest pain on exertion, denies any palpitation, diaphoresis, nausea vomiting dizziness. Denies any fever cough, recent sick contact. Denies any leg swelling Upon arrival in the ER she was worked up for above-mentioned. Pertinent imaging studies:X-ray chest: No effusion no infiltrates no pneumothorax. EKG: Sinus rhythm, with no acute ST-T wave changes.Patient was admitted for the management of chest pain,2D echo done during the hospital stay: Showed normal LV systolic function with EF of 55-60%, grade 1 diastolic dysfunction trace MR trace TR, mild pulmonary hypertension, given her nature of presenting complaint, she underwent nuclear stress test, which showed Small area of fixed perfusion defect surrounded by medium size area of moderate reversibility noted in mid to distal anterior wall suggestive of ischemia in LAD territory, please note that patient was not able to perform the prone images therefore cannot rule out artifact. TID ratio was elevated 1.2 which could be secondary to left ventricle hypertrophy however cannot rule out multivessel coronary artery disease. Given the fact that she had an abnormal stress test, cardiology was consulted and she was scheduled for coronary angiogram,which was suggestive of nonocclusive coronary artery disease. Likely cause of her chest pain is noncardiac.Patient responded well to above medical management and was discharged in stable condition to home she will continue to follow-up with her primary care physician as an outpatient, she will continue with her home medication. Physical Exam Const: COMMON NORMALS: patient oriented x3 HENMT: COMMON NORMALS: normocephalic, atraumatic and external ears normal HEAD & SCALP: normocephalic and atraumatic EXTERNAL EAR: Yes external ears normal Eye: COMMON NORMALS: no scleral icterus Resp: COMMON NORMALS: normal respiratory effort, No retractions and clear to auscultation bilaterally AUSCULTATION: clear to auscultation bilaterally Cardio: COMMON NORMALS: regular rate, regular rhythm, S1 normal heart sound present, S2 normal heart sound present, No gallops present (Cardio), No murmurs present (Cardio), No rub (Cardio) and Peripheral pulses 2+ throughout RATE: regular rate RHYTHM: regular rhythm HEART SOUNDS: S1 normal heart sound present and S2 normal heart sound present PERIPHERAL PULSES: Peripheral pulses 2+ throughout GI: COMMON NORMALS: Normal to inspection, nondistended, normoactive bowel sounds present, Soft to palpation, non-tender and no masses AUSCULTATION: Yes normoactive bowel sounds PALPATION: Yes Soft to palpation RECTAL EXAM: deferred Extremity: COMMON NORMALS: no clubbing, cyanosis or edema and no pedal edema Neuro: COMMON NORMALS: patient oriented x3 Discharge Data Data Completed and Pending: Completed Studies During Hospitalization Category Date Time Status Cardiac Stress Te st MIBI [Sestamibi Stress Test Reque st Exams 01/01/21 06:57 Completed ] Routine XR chest 1V ruth ble [id number] Urgent Exams 12/31/20 11:09 Completed NM vanita perf SPECT r/s* [id number] Routin e Nuc Med 01/01/21 06:58 Completed CV. echo complete * [id number] Routine Ultrasound 01/01/21 18:18 Completed Pending at discharge Category Date Time Status MEDICAL ADMINISTRATIVE TECHNICIAN request for service Routin e Exams 01/02/21 07:37 Taken Vitals: Last Vital Signs Temp 98.7 F 01/02/21 11:58 Pulse 83 01/02/21 14:49 Resp 18 01/02/21 14:49 BP 111/77 01/02/21 14:49 Pulse Ox 94 01/02/21 11:58 Discharge Plan Discharge Patient Disposition: Home Condition: Stable Prescriptions: Continued multivitamin Tablet 1 tab PO DAILY RF: 0 oxybutynin chloride 10 mg tablet extended release 24hr 10 mg PO QAM RF: 0 sertraline 100 mg tablet 150 mg PO QAM RF: 0 calcium carbonate-vitamin D3 600 mg(1,500mg) -200 unit Tablet 1 tab PO BID RF: 0 famotidine 20 mg tablet 20 mg PO BID RF: 0 simvastatin 20 mg tablet 20 mg PO QPM RF: 0 lisinopril 10 mg tablet 10 mg PO QAM RF: 0 Vitamin D3 10 mcg (400 unit) Capsule 10 mcg PO BID RF: 0 Collagen Tabs 3 tab PO BID RF: 0 Miralax 17 gram/dose powder 17 g PO DAILY PRN (Reason: Constipation) RF: 0 Discharge Orders: Discharge Order (Routine); Ordered 01/02/21 Ordered By: Blaise Avila Referrals: Devika Miller MD [Primary Care Provider] - 1 month (You have a follow up appointment with Dr Miller on January 31 at 1:30pm If you are unable to keep this arrangment please call the clinic to arrange your folllow up care. ) Ross Alicia M.D [Physician] - 1 month (You need an appointment with Dr Alicia in 1 month if you hve not heard from [facility] by Thursday please call to arrange your follow up care.) Discharge Diet: Low Salt Discharge Activity: Resume usual activity Patient Instructions: Chest Pain (DC), Chest Pain Stoplight, Opioid Safety, Post Angiogram Home Care Instructions Discharge Attestations Time Spent in Discharge Care*: less than 30 min Specific Discharge Activities: educating patient, educating and/or supporting family/caregiver, discussing with pcp/other providers, discussing with sample case porter/social workers/dc planners, documenting/other paperwork and evaluating patient/reviewing data Status at Discharge: Cognitive status at discharge: cognitively intact , Behavioral status at discharge: cooperative , Functional status at discharge: independent ambulation Overall status at discharge: patient is back to baseline Quality Metrics Clinical Quality Measures During this hospital stay, did patient experience: None Coding Level of Care Code Acute Chg FW DC note Exam Detailed Diagnoses Chest pain R07.9 Hypertension I10 Sleep apnea G47.30
--- NOTE | 2021-01-02 16:57 | P.PN_ITS ---
Subjective Subjective: Interval history: Patient is overall doing well. He underwent coronary angiogram that did not reveal significant coronary artery disease. Vitals/I&O/Wt Last Vital Signs Temp 98.7 F 01/02/21 11:58 Pulse 83 01/02/21 14:49 Resp 18 01/02/21 14:49 BP 111/77 01/02/21 14:49 Pulse Ox 94 01/02/21 11:58 01/02/21 01/02/21 01/02/21 06:59 14:59 22:59 Intake Total 529.167 / 529.167 Balance 529.167 / 529.167 Physical Exam Narrative: EXAM NARRATIVE: GENERAL: Patient is alert, awake and oriented x3. [] NECK: No jugular vein distension. [] HEENT: No cyanosis. No icterus. No pallor. [] HEART: Regular S1 and S2. No murmur, rub or gallop. [] LUNGS: Clear to auscultate bilaterally. [] ABDOMEN: Soft, nontender and nondistended. Positive bowel sounds. No guarding, rebound or tenderness. [] CENTRAL NERVOUS SYSTEM: Grossly nonfocal. [] EXTREMITIES: Lower extremities with no edema bilaterally. Pulses palpable in the lower extremities, both dorsalis pedis and posterior tibial. [] Data : 01/01/21 05:41 01/01/21 05:41 A&P Assessment and plan (1) Hypertension: Status: Acute (2) Chest pain: Status: Acute (3) Abnormal stress test: Status: Acute Patient's coronary angiogram does not reveal significant coronary artery disease. Risk factor control with the blood pressure medications. Exercise and low-sodium diet advised Thank you for involving us with care of this patient. Please call with q uestions. Attestations Medical Necessity Statement*: Care expected to cross 2 midnights Coding Level of Care Code Acute Community Ambassador for Eva Fwd Diagnoses Hypertension I10 Chest pain R07.9 Abnormal stress test R94.39
== END 2021-01-02 15:31 | disposition home or self-care (01) ==
LOC: ER 11:44 → MEDSURG 15:10 → CSU 01-01 21:23
PROVIDERS: Internal Medicine; Admitting Provider Internal Medicine; Emergency Provider Emergency Medicine; PCP Family Medicine; Visit Provider Internal Medicine
DX: R07.9 Chest pain, unspecified (principal); I10 Essential (primary) hypertension; G47.30 Sleep apnea, unspecified; I27.20 Pulmonary hypertension, unspecified; I08.1 Rheumatic disorders of both mitral and tricuspid valves; Z79.82 Long term (current) use of aspirin
CPT/HCPCS: 36415; 71045; 78452; 80048; 80053; 84484; 85025; 93005; 93017; 93306; 93452; 96360; 96361; 96372; 99285; A9500; C1769; C1887; C1894; G0378; J1644; J1650; J2250; J2785; J3010; J3490; J7030; Q0163; Q9967

== ENCOUNTER 2021-04-05 14:06 | Observation (INO) | payer BC, SELFPAY ==
[2021-04-05 14:35] VITALS: BP 77/53; PULSE 136; RESP 18; TEMP 36.5; O2SAT 96; BMI 38.4
[2021-04-05 14:38] VITALS: BP 101/51; PULSE 131; RESP 20; O2SAT 96
--- NOTE | 2021-04-05 14:53 | ECG_ITS ---
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 Measurements Intervals Shirley Rate: 130 P: 7 TN: 124 QRS: -29 QRSD: 89 T: 42 QT: 304 QTc: 448 Interpretive Statements SINUS TACHYCARDIA POSSIBLE INFERIOR MYOCARDIAL INFARCTION , PROBABLY OLD [30 ms Q WAVE IN II/aVF] ABNORMAL RHYTHM ECG Compared to ECG 12/31/2020 18:53:19 Myocardial infarct finding now present Sinus rhythm no longer present Electronically Signed On 04-06-2021 6:57:26 TINNER HELPER by Helder Nelson M.D. [email or web address]
[2021-04-05] MEDS: lactated ringers 1,000 ML 999 ML IV ×2 (15:04→16:04)
[2021-04-05 15:08] LABS: Basophils # 0.1 10^3/uL (0.0-0.1); Basophils % 0.4 %; Eosinophils # 0.1 10^3/uL (0.0-0.8); Eosinophils % 0.6 %; Hematocrit 47.6 % (37.0-47.0); Hemoglobin 15.3 g/dL (11.5-15.3); Lymphocytes # 1.5 10^3/uL (0.8-4.8); Lymphocytes % 6.6 %; Mean Corpuscular HGB Conc 32.1 g/dL (30.0-36.0); Mean Corpuscular Hemoglobin 27.4 pg (28.0-34.0); Mean Corpuscular Volume 85.3 fl (81-99); Mean Platelet Volume 10.3 fL (7.4-10.4); Monocytes # 1.5 10^3/uL (0.2-0.9); Monocytes % 6.4 %; Neutrophils # 19.44 10^3/uL (1.8-7.7); Neutrophils % 85.1 %; Nucleated Red Blood Cells % 0 %; Platelet Count 599 10^3/cmm (130-400); Red Blood Count 5.58 10^6/uL (4.1-5.3); Red Cell Distribution Width 14.2 % (12.1-15.1); White Blood Count 22.9 10^3/uL (4.0-10.0)
--- NOTE | 2021-04-05 15:14 | PC.NURSE ---
1 L of fluid starting pressure infusion.
--- NOTE | 2021-04-05 15:17 | CT_ITS ---
WS: [id number] CT ABDOMEN PELVIS TECHNIQUE: Contrast-enhanced CT of the abdomen and pelvis with coronal and sagittal reformatted image s. CLINICAL INFORMATION: eval for infection COMPARISON: CT August 19, 2020 DLP: 1713.[address] scans at [facility] use at least one of these dose optimization techniques: automated e xposure control; mA and/or kV adjustment per patient size (includes targeted exams where dose is matc hed to clinical indication); or iterative reconstruction. FINDINGS: Diffuse fatty infiltration of the liver. Prior postoperative changes gastric sleeve surgery. Expected postoperative changes about the gastric sleeve. No drainable fluid collections. No free air. Lung bases are well aerated. Adrenal glands are normal. Fatty atrophy of the pancreas. Normal portal vein and splenic vein. Area of decreased enhancement involving the posterior tip of the spleen with s urrounding perisplenic fluid suspicious for small splenic laceration. No evidence of active hemorrhag e. Slightly dilated and thickened proximal small bowel loops with mucosal enhancement and air-fluid leve ls. This extends to involve small bowel loops in the midabdomen with enhancement of the distal ileal small bowel loops. Similar-appearing inflammatory changes involving the RIGHT colon. Findings suspici ous for infectious,inflammatory or ischemic enterocolitis. No pneumatosis or free air. Transverse colon has a normal appearance and is decompressed. Normal LEFT descending colon and sigmoi d colon. No evidence of high-grade obstruction. Proximal celiac and SMA appear patent. SRI appears patent. Adrenal glands are normal. Normal renal pa renchymal enhancement. No hydronephrosis. Normal caliber abdominal aorta. Vicqc-zc-yvzhgiyi amount of free fluid in the pelvis. Scattered interloop fluid in the mid and upper abdomen and pericolic gutte rs. Disc space narrowing L5-S1. Prior cholecystectomy and hysterectomy. A few reactive periaortic and aortocaval lymph nodes. CT/CT abdomen pelvis w con* [id number] IMPRESSION: 1. Recent postoperative changes gastric sleeve surgery. Gastric sleeve is norm al in appearance with normal postoperative changes. No drainable fluid collecti ons. 2. Small area of decreased enhancement involving the tip of the posterior sple en with surrounding perisplenic fluid suspicious for splenic laceration measuri ng 2.0 x 1.8 cm. No evidence of active hemorrhage. Recommend short interval fol low-up. 3. Diffuse thickening with submucosal enhancement and surrounding induration i nvolving the small bowel extending from the jejunum to the terminal ileum. This also involves the cecum and RIGHT ascending colon compatible with an enterocol itis. Differential considerations include infectious, inflammatory or ischemic etiologies. 4. Mild to moderate free fluid in the pelvis. Scattered interloop fluid in the mid and upper abdomen. Fluid in the pericolic gutters. 5. Proximal celiac and SMA appear patent. 6. Normal caliber abdominal aorta. 7. Prior cholecystectomy. 8. No free air. Notified Taryn Rapp MD at 04/05/2021 4:29 PM.
[2021-04-05 15:28] LABS: Alanine Aminotransferase 15 U/L (0-33); Albumin Level 4.3 g/dL (3.5-5.2); Alkaline Phosphatase 76 IU/L (35-105); Anion Gap 22.1 (5-19); Aspartate Amino Transferase 14 U/L (0-32); Blood Urea Nitrogen 31 mg/dL (8-23); Carbon Dioxide 19 mmol/L (22-29); Chloride 96 mmol/L (98-107); Globulin 2.3 g/dL (1.3-4.6); Glomerular Filtration Rate 37.9 mL/min (90-130); Glucose 146 mg/dL (65-115); Lipase 80 U/L (13-60); Osmolality Calculated 285 mOsm/kg (285-295); Potassium 4.1 mmol/L (3.5-5.1); Sodium 133 mmol/L (136-145); Total Bilirubin 0.4 mg/dL (0.15-1.2); Total Protein 6.6 g/dL (6.6-8.7)
[2021-04-05 15:29] LABS: Troponin T (5th) Once 27 ng/L (0-10)
[2021-04-05 15:36] LABS: D Dimer >= 20.00 ug/mIFEU (0-0.59)
[2021-04-05] MEDS: iodixanol 320 mg/mL 100mL Btl IV ×2 (15:56→17:20)
[2021-04-05] MEDS: cefepime 1,000 MG in sodium chloride 0.9% (plus) 50 ML 100 MG IV (15:59)
--- NOTE | 2021-04-05 16:28 | CTR_ITS ---
PROCEDURE INFORMATION: Exam: CTA Chest With Contrast Exam date and time: 04/05/2021 4:28 PM Age: 66 years old Clinical indication: Abnormal findings; Abnormal diagnostic tests; Elevated d-dimer; Prior surgery; Surgery date: <1 month; Patient HX: Elev d-dimer, gastric sleeve 03/27/21; Additional info: Eval for pe TECHNIQUE: Imaging protocol: Computed tomographic angiography of the chest with contrast. 3D rendering (Not supervised by radiologist): MIP and/or 3D reconstructed images were created by the technologist. Radiation optimization: All CT scans at this facility use at least one of these dose optimization techniques: automated exposure control; mA and/or kV adjustment per patient size (includes targeted exams where dose is matched to clinical indication); or iterative reconstruction. Contrast material: VISI 320; Contrast volume: 62 ml; Contrast route: INTRAVENOUS (IV); COMPARISON: CR XR chest 1V portable [id number] 12/31/2020 11:31 AM RADIATION DOSE METRICS: Total DLP (mGy-cm): 492.08 FINDINGS: Pulmonary arteries: Normal. No pulmonary emboli. Aorta: Unremarkable. No aortic aneurysm. No aortic dissection. Lungs: Minimal left lower lobe atelectasis. Pleural spaces: Unremarkable. No pneumothorax. No pleural effusion. Heart: Coronary artery atherosclerotic calcifications. Lymph nodes: Several subcentimeter nonspecific mediastinal lymph nodes. Liver: Small amount of ascites about the liver. Stomach and bowel: Gastric surgical sutures. Bones/joints: Unremarkable. No acute fracture. Soft tissues: Unremarkable. CT/CT angio chest PE protcl [id number] IMPRESSION: 1. Negative for pulmonary embolus. 2. Minimal left lower lobe atelectasis. 3. Small amount of ascites about the liver. 4. Gastric surgical sutures. 5. Several subcentimeter nonspecific mediastinal lymph nodes. 6. Coronary artery atherosclerotic calcifications.
[2021-04-05 16:41] VITALS: BP 99/53; PULSE 98; RESP 22; O2SAT 96
--- NOTE | 2021-04-05 17:07 | ED_ITS ---
HPI - General Adult General: Chief complaint: Weakness Stated complaint: WEAK Time Seen by Provider: 04/05/21 14:44 History of Present Illness: Patient is a 66-year-old female who recently underwent gastric sleeve 2 weeks ago at [facility] in [place] presenting to the emergency room for evaluation of diarrhea, generalized weakness and fatigue since today. Patient tells me that she has been compliant with her post gastric bypass diet. Patient says that she has not had any recent sugars. Patient tells me that earlier today she had generalized weakness and began developing multiple bouts of liquidy stool. Patient denies any melena hematochezia, or acute abdominal pain nausea/vomiting, chest pain, shortness breath, palpitation or lightheadedness. Patient tells me that of note, she recently started on 500 mg of Keflex daily for concerns for possible laparoscopic scars in infection. She tells me that she thinks that her laparoscopic scar may just be an allergic reaction but called her surgeon and was told to restart on a prescription for Keflex just in case it is an infection. Patient denies any excessive foul-smelling stool. Patient denies any other focal complaints at this time. Onset: this morning Duration: 15 hrs ago Location:home Severity:moderatate Associated symptoms: Reports malaise; Deny chest pain, dyspnea, nausea, rash, palpitations or vomiting Review of Systems Const: Reports: fatigue, malaise and other (+generalized weakness); Denies: fever(s) or chills Eyes: Denies: change in vision ENMT: Denies: mouth pain Card: Denies: chest pain or palpitations Resp: Denies: dyspnea or non-productive cough GI: Reports: diarrhea; Denies: abdominal pain, nausea or vomiting : Denies: dysuria Musc: Denies: extremity pain Skin/Breast: Denies: rash or new lesions Neuro: Denies: weakness in extremities Psych: Reports: other (Normal mood) Albert/Lymph: Denies: easy bruising [facility] ED PFSH: Medical History Chest pain Hypertension Surgical History H/O gastric sleeve Family History Other Hypertension Social History Smoking and tobacco status: never smoked Alcohol intake: never Substance/Drug Use: never Physical Exam Const: COMMON NORMALS: alert HENMT: COMMON NORMALS: atraumatic HEAD & SCALP: atraumatic MOUTH: moist mucous membranes abnormal Eye: COMMON NORMALS: EOMs intact bilaterally and conjunctivae normal CONJUNCTIVA: Yes conjunctivae normal Neck/C-Spine: COMMON NORMALS: full ROM and supple Resp: COMMON NORMALS: normal respiratory effort and clear to auscultation bilaterally AUSCULTATION: clear to auscultation bilaterally Cardio: RATE: tachycardic GI: COMMON NORMALS: Soft to palpation and non-tender PALPATION: Yes Soft to palpation OTHER: No focal TTP. NO guarding rebound, guarding, rigidity. No CVA tenderness to percussion. Neg Iniguez/Neg McBurney's point tenderness, no suprabupic tenderness to palpation. Laparoscopic Giovanny appears to be well-healing. There is an area of skin discoloration around one of the laparoscopic scar. Signs of infection around the laparoscopic arm. Extremity: COMMON NORMALS: full ROM Neuro: SENSORIUM/ORIENTATION: Yes alert MOTOR EXAM: No Abnormal motor strength present and Other motor observations present (no focal motor deficits) Psych: COMMON NORMALS: speech normal SPEECH: Yes normal speech MOOD & AFFECT: Yes euthymic mood Course Vital Signs: Vital signs: Vital Signs Temperature 98.2 F 04/06/21 13:27 Pulse Rate 78 04/06/21 13:27 Respiratory Rate 16 04/06/21 13:27 Blood Pressure 104/64 04/06/21 13:27 Pulse Oximetry 97 04/06/21 13:27 MDM - General Adult Medical Decision Making 66-year-old female presenting to the emergency room for evaluation of diarrhea and generalized weakness x1 day. On arrival, patient is noted to have low blood pressure of 80/50 and noted to be tachycardic to the 130s and dry on exam. Laparoscopic scar appear to be clear. No guarding or rebound tenderness on abdominal exam. Lab work-up showed a white count 20 2.9K. Patient is noted to have a mild anion gap likely secondary to acute ketosis. CT abdomen pelvis showed pancolitis. There is an area of splenic laceration noted. Case was discussed with patient's surgeon Dr. Cobos who tells me that this is to be expe cted from surgery. Given the fact that surgery was 2 weeks out, this is unlikely to be actively bleeding from the splenic laceration. The CT report there is does not appear to have any signs of active hemorrhage around the spleen. The SMA and celiac appears to be clear on the CTA. D-dimer appears to be greater than 20. CTA chest negative for PE. D-dimer elevation is likely secondary to postoperative changes. Patient received metronidazole and cefepime in the emergency room. Stool sample pending at this time. Blood culture pending. Patient received 2 L of lactated Ringer with significant improvement in heart rate. Patient reports feeling significantly better. Disposition: Admission Lab Data : 04/06/21 05:28 04/06/21 05:28 Radiology Impressions Abdomen/Pelvis CT 04/05/21 15:17 IMPRESSION: 1. Recent postoperative changes gastric sleeve surgery. Gastric sleeve is normal in appearance with normal postoperative changes. No drainable fluid collections. 2. Small area of decreased enhancement involving the tip of the posterior spleen with surrounding perisplenic fluid suspicious for splenic laceration measuring 2.0 x 1.8 cm. No evidence of active hemorrhage. Recommend short interval follow-up. 3. Diffuse thickening with submucosal enhancement and surrounding induration involving the small bowel extending from the jejunum to the terminal ileum. This also involves the cecum and RIGHT ascending colon compatible with an enterocolitis. Differential considerations include infectious, inflammatory or ischemic etiologies. 4. Mild to moderate free fluid in the pelvis. Scattered interloop fluid in the mid and upper abdomen. Fluid in the pericolic gutters. 5. Proximal celiac and SMA appear patent. 6. Normal caliber abdominal aorta. 7. Prior cholecystectomy. 8. No free air. Notified Taryn Rapp MD at 04/05/2021 4:29 PM. Chest CTA 04/05/21 16:28 IMPRESSION: 1. Negative for pulmonary embolus. 2. Minimal left lower lobe atelectasis. 3. Small amount of ascites about the liver. 4. Gastric surgical sutures. 5. Several subcentimeter nonspecific mediastinal lymph nodes. 6. Coronary artery atherosclerotic calcifications. Venous Duplex 04/06/21 08:10 IMPRESSION: No evidence of deep vein thrombosis. Laboratory Results WBC 22.9 10^3/uL (4.0-10.0) H 04/05/21 15:01 RBC 5.58 10^6/uL (4.1-5.3) H 04/05/21 15:01 Hgb 15.3 g/dL (11.5-15.3) 04/05/21 15:01 Hct 47.6 % (37.0-47.0) H 04/05/21 15:01 MCV 85.3 fl (81-99) 04/05/21 15:01 MCH 27.4 pg (28.0-34.0) L 04/05/21 15:01 MCHC 32.1 g/dL (30.0-36.0) 04/05/21 15:01 RDW 14.2 % (12.1-15.1) 04/05/21 15:01 Plt Count 599 10^3/cmm (130-400) H 04/05/21 15:01 MPV 10.3 fL (7.4-10.4) 04/05/21 15:01 Neut % (Auto) 85.1 % 04/05/21 15:01 Lymph % (Auto) 6.6 % 04/05/21 15:01 Lane % (Auto) 6.4 % 04/05/21 15:01 Eos % (Auto) 0.6 % 04/05/21 15:01 Baso % (Auto) 0.4 % 04/05/21 15:01 Neut # (Auto) 19.44 10^3/uL (1.8-7.7) H 04/05/21 15:01 Lymph # (Auto) 1.5 10^3/uL (0.8-4.8) 04/05/21 15:01 Lane # (Auto) 1.5 10^3/uL (0.2-0.9) H 04/05/21 15:01 Eos # (Auto) 0.1 10^3/uL (0.0-0.8) 04/05/21 15:01 Baso # (Auto) 0.1 10^3/uL (0.0-0.1) 04/05/21 15:01 Nucleated RBC % (auto) 0 % 04/05/21 15:01 Nucleated RBCs # 0.0 /100WBC 04/05/21 15:01 D-Dimer >= 20.00 ug/mIFEU (0-0.59) H 04/05/21 15:01 Sodium 133 mmol/L (136-145) L 04/05/21 15:01 Potassium 4.1 mmol/L (3.5-5.1) 04/05/21 15:01 Chloride 96 mmol/L (98-107) L 04/05/21 15:01 Carbon Dioxide 19 mmol/L (22-29) L 04/05/21 15:01 Anion Gap 22.1 (5-19) H 04/05/21 15:01 BUN 31 mg/dL (8-23) H 04/05/21 15:01 Creatinine 1.4 mg/dL (0.5-0.9) H 04/05/21 15:01 GFR Calculation 37.9 mL/min (90-130) L 04/05/21 15:01 Glucose 146 mg/dL (65-115) H 04/05/21 15:01 Calculated Osmolality 285 mOsm/kg (285-295) 04/05/21 15:01 Calcium 10.0 mg/dL (8.5-10.5) 04/05/21 15:01 Total Bilirubin 0.4 mg/dL (0.15-1.2) 04/05/21 15:01 AST 14 U/L (0-32) 04/05/21 15:01 ALT 15 U/L (0-33) 04/05/21 15:01 Alkaline Phosphatase 76 IU/L (35-105) 04/05/21 15:01 Troponin T Gen 5 ng/L 27 ng/L (0-10) H 04/05/21 15:01 Total Protein 6.6 g/dL (6.6-8.7) 04/05/21 15:01 Albumin 4.3 g/dL (3.5-5.2) 04/05/21 15:01 Globulin 2.3 g/dL (1.3-4.6) 04/05/21 15:01 Lipase 80 U/L (13-60) H 04/05/21 15:01 Procalcitonin 0.20 ng/mL (0-0.5) 04/05/21 15:01 Urine Color Yellow (Yellow) 04/05/21 15:20 Urine Appearance Hazy (CLEAR) A 04/05/21 15:20 Urine pH 7 (5-7) 04/05/21 15:20 Ur Specific [place] 1.005 (1.005-1.030) 04/05/21 15:20 Urine Protein Neg (Negative) 04/05/21 15:20 Urine Glucose (UA) Norm (Normal) 04/05/21 15:20 Urine Ketones Negative (Negative) 04/05/21 15:20 Urine Blood 2+ (Negative) H 04/05/21 15:20 Urine Nitrate Negative (Negative) 04/05/21 15:20 Urine Bilirubin Neg (Negative) 04/05/21 15:20 Urine Urobilinogen Neg mg/dL (Negative) 04/05/21 15:20 Ur Leukocyte Esterase Trace (Negative) H 04/05/21 15:20 Urine RBC 5-10 /hpf (0-2) H 04/05/21 15:20 Urine WBC 10-15 /hpf (0-5) H 04/05/21 15:20 Ur Squamous Epith Cells 0-4 /hpf (0-5) H 04/05/21 15:20 Ur Renal Epithelial Cell 0-4 /hpf 04/05/21 15:20 Amorphous Sediment 1+ /hpf 04/05/21 15:20 Urine Bacteria Trace /hpf (NONE) 04/05/21 15:20 Imaging Data Other Imaging: Radiologist's impression: [employer] [address] [address] [address] Scan Report Signed Patient: Lala Mendez Unit #: [id number] : 1955 Age/Sex: 66 / F ADM Date: 04/05/21 Loc: ER Room/Bed: Attending Dr: Ordering Provider/Ordering MD: Taryn Rapp MD Date of Service: 04/05/21 Procedure(s): CT abdomen pelvis w con* [id number] Accession Number(s): [id number] Report Number: [id number] WS: [id number] CT ABDOMEN PELVIS TECHNIQUE: Contrast-enhanced CT of the abdomen and pelvis with coronal and sagittal reformatted images. CLINICAL INFORMATION: eval for infection COMPARISON: CT August 19, 2020 DLP: 1713.[address] [facility] use at least one of these dose optimization techniques: automated exposure control; mA and/or kV adjustment per patient size (includes targeted exams where dose is matched to clinical indication); or iterative reconstruction. FINDINGS: Diffuse fatty infiltration of the liver. Prior postoperative changes gastric sleeve surgery. Expected postoperative changes about the gastric sleeve. No drainable fluid collections. No free air. Lung bases are well aerated. Adrenal glands are normal. Fatty atrophy of the pancreas. Normal portal vein and splenic vein. Area of decreased enhancement involving the posterior tip of the spleen with surrounding perisplenic fluid suspicious for small splenic laceration. No evidence of active hemorrhage. Slightly dilated and thickened proximal small bowel loops with mucosal enhancement and air-fluid levels. This extends to involve small bowel loops in the midabdomen with enhancement of the distal ileal small bowel loops. Similar- appearing inflammatory changes involving the RIGHT colon. Findings suspicious for infectious,inflammatory or ischemic enterocolitis. No pneumatosis or free air. Transverse colon has a normal appearance and is decompressed. Normal LEFT descending colon and sigmoid colon. No evidence of high-grade obstruction. Proximal celiac and SMA appear patent. SRI appears patent. Adrenal glands are normal. Normal renal parenchymal enhancement. No hydronephrosis. Normal caliber abdominal aorta. [id number] amount of free fluid in the pelvis. Scattered interloop fluid in the mid and upper abdomen and pericolic gutters. Disc space narrowing L5-S1. Prior cholecystectomy and hysterectomy. A few reactive periaortic and aortocaval lymph nodes. CT/CT abdomen pelvis w con* [id number] IMPRESSION: ? 1.? Recent postoperative changes gastric sleeve surgery. Gastric sleeve is normal in appearance with normal postoperative changes. No drainable fluid collections. 2.? Small area of decreased enhancement involving the tip of the posterior spleen with surrounding perisplenic fluid suspicious for splenic laceration measuring 2.0 x 1.8 cm. No evidence of active hemorrhage. Recommend short interval follow-up. 3.? Diffuse thickening with submucosal enhancement and surrounding induration involving the small bowel extending from the jejunum to the terminal ileum. This also involves the cecum and RIGHT ascending colon compatible with an enterocolitis. Differential considerations include infectious, inflammatory or ischemic etiologies. 4.? Mild to moderate free fluid in the pelvis. Scattered interloop fluid in the mid and upper abdomen. Fluid in the pericolic gutters. 5.? Proximal celiac and SMA appear patent. 6.? Normal caliber abdominal aorta. 7.? Prior cholecystectomy. 8.? No free air. ? ? Notified Taryn Rapp MD at 04/05/2021 4:29 PM. ? 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
--- NOTE | 2021-04-05 18:21 | P.HP_ITS ---
Providers/Chief Complaint Primary Care Provider: Devika Miller MD Chief Complaint: WEAK History of Present Illness Lala Mendez is a 66 year old female who had gastric sleeve surgery about 2 weeks ago in [place] presented today for chief complaint of worsening diarrhea and rash around surgical site. Patient is stating that she was doing fine until this Thursday when she started experiencing 6-7 episodes of diarrhea on daily basis, after surgery she is on liquid diet trying sugar-free Jell-O and pudding, she has not experienced any episodes of vomiting, fever, chest pain or shortness of breath. She got prescription of Keflex for her rash around surgical site and she only got 1 dose so far. Her rash was very itchy, she did not notice any drainage. In the ER we did speak with her surgeon after reviewing her CT abdomen pelvis which was consistent with pancolitis and splenic injury Surgeon recommended IV fluid hydration and not transfer to [facility] as splenic injury is very common with gastric sleeve surgery She has enterocolitis Celiac and SMA appear patent No free air however moderate fluid in the pelvis Secondary to high D-dimer CTA chest was requested which was negative for pulmonary emboli Small amount of ascites on the liver Patient is dehydrated with DELMA creatinine 1.4 previous colonoscopies were unremarkable, Leukocytosis 22,000 In the ER she was given cefepime Flagyl Patient was constipated and now experiencing diarrhea Review of Systems Const: Reports: body aches and fatigue; Denies: fever(s) or chills Eyes: Denies: change in vision ENMT: Denies: throat pain Card: Denies: chest pain Resp: Denies: dyspnea GI: Reports: abdominal pain and diarrhea; Denies: nausea or vomiting : Denies: flank pain Musc: Denies: neck pain Skin/Breast: Reports: erythema, skin pain and skin tenderness Neuro: Denies: headache(s) Psych: Denies: anxiety Endo: Denies: polyuria Albert/Lymph: Denies: easy bruising All/Imm: Denies: urticaria Medications/Allergies Home Medications Medication Instructions Recorded Confirmed Last Taken Type Collagen Tabs 3 tab PO BID 12/31/20 04/05/21 Unknown History calcium carbonate 600 mg (1,500 1 tab PO BID 12/31/20 04/05/21 Unknown History mg)-vitamin D3 200 unit tablet cholecalciferol (vitamin D3) 10 10 mcg PO BID 12/31/20 04/05/21 Unknown History mcg (400 unit) capsule (Vitamin D3) famotidine 20 mg tablet 20 mg PO BID 12/31/20 04/05/21 12/31/20 07:15 History lisinopril 10 mg tablet 10 mg PO QAM 12/31/20 04/05/21 04/05/21 History multivitamin 1 tab PO DAILY 12/31/20 04/05/21 Unknown History oxybutynin chloride 10 mg 10 mg PO QAM 12/31/20 04/05/21 04/05/21 History tablet,extended release 24 hr polyethylene glycol 3350 17 17 g PO DAILY PRN 12/31/20 04/05/21 Unknown History gram/dose oral powder (Miralax) sertraline 100 mg tablet 150 mg PO QAM 12/31/20 04/05/21 12/31/20 07:15 History simvastatin 20 mg tablet 20 mg PO QPM 12/31/20 04/05/21 12/30/20 History cephalexin 500 mg capsule 500 mg PO BID 04/05/21 04/05/21 Unknown History cetirizine 10 mg tablet (Zyrtec) 10 mg PO DAILY 04/05/21 04/05/21 Unknown History magnesium oxide 400 mg PO DAILY 04/05/21 04/05/21 Unknown History potassium gluconate 595 mg (99 mg) 595 mg PO DAILY 04/05/21 04/05/21 Unknown History tablet Allergies Allergy/AdvReac Type Severity Reaction Status Date / Time esomeprazole [From Nexium] Allergy ALGY-Hives Verified 04/05/21 15:35 Penicillins Allergy Unknown Verified 04/05/21 15:35 PFSH Acute PFSH: Medical History Chest pain Hypertension Surgical History H/O gastric sleeve Family History Other Hypertension Social History Smoking and tobacco status: never smoked Alcohol intake: never Substance/Drug Use: never Vitals/I&O/Wt Last Vital Signs Temp 97.7 F 04/05/21 14:35 Pulse 98 04/05/21 16:41 Resp 22 H 04/05/21 16:41 BP 99/53 04/05/21 16:41 Pulse Ox 96 04/05/21 16:41 04/05/21 04/05/21 04/05/21 06:59 14:59 22:59 Intake Total 999 / 999 Balance 999 / 999 Weight last 48 hrs Weight 98.43 kg Physical Exam Narrative: Very pleasant cooperative female Saturating well on room air Contact dermatitis, while the appearance of rash around surgical site, mild signs of hyperemia cellulitis without any purulence No drainage noted around the ulcers They are not pruritic at the time of my evaluation Skin is dry EOMI, PERRLA Abdomen soft, distended visceral obesity No signs of edema Patient is awake and alert Data : 04/05/21 15:01 04/05/21 15:01 A&P Assessment and plan (1) Contact dermatitis: Status: Acute (2) Sleep apnea: Status: Acute (3) Fatigue: Status: Acute (4) Diarrhea: Status: Acute (5) Enterocolitis: Status: Acute (6) Splenic trauma: Status: Acute Plan Enterocolitis No fever or bloody stools Recent surgery about 2 weeks ago We will keep her on aztreonam and metronidazole Rule out C. difficile No sign of ischemic colitis, no signs of peritonitis, no hematochezia Abdominal vessels are patent, CTA negative for PE, Continue IV fluids Full liquid diet Contact dermatitis Would use topical steroids and doxycycline Gastric sleeve surgery Dumping syndrome? Would recommend follow-up with her surgeon once her dehydration resolved Dehydration related to DELMA Anticipate improvement with IV fluids Hold lisinopril Continue multivitamins Full liquid diet Full code DVT prophylaxis on board Attestations Medical Necessity Statement*: Anticipating less than 2 midnights in the hospital for management of dehydration Time Spent in Patient Care: 35mins Coding Level of Care Code Acute Rivet Tester for Chg Fwd Diagnoses Contact dermatitis L25.9 Sleep apnea G47.30 Fatigue R53.83 Diarrhea R19.7 Enterocolitis K52.9 Splenic trauma S36.00XA
[2021-04-05 18:25] VITALS: BP 115/67
[2021-04-05 18:51] LABS: Add Urine Microscopic? YES; Bilirubin Urine Neg (Negative); Blood Urine 2+ (Negative); Glucose Urine UA Norm (Normal); Ketones Urine Negative (Negative); Leukocyte Esterase Urine Trace (Negative); Nitrate Urine Negative (Negative); Protein Urine Neg (Negative); Specific Gravity, Urine 1.005 (1.005-1.030); Squamous Epithelial Cell Urine 0-4 /hpf (0-5); Urine Appearance Hazy (CLEAR); Urine Color Yellow (Yellow); Urobilinogen Urine Neg (Negative); pH Urine 7 (5-7)
[2021-04-05 18:52] LABS: Add Urine Culture? No; Amorphous Sediment Urine 1+ /hpf; Bacteria Urine TRACE /hpf; Renal Epithelial Cells Urine 0-4 /hpf
[2021-04-05 20:48] VITALS: BMI 38.2
[2021-04-05 21:09] VITALS: BP 95/60; PULSE 82; RESP 19; TEMP 36.7; O2SAT 97
[2021-04-05] MEDS: sodium chloride 0.9% 1,000 ML 75 ML IV (21:58)
[2021-04-05] MEDS: enoxaparin 40 mg/0.4 mL Syringe SUBCUT (22:07)
[2021-04-05] MEDS: metroNIDAZOLE 500 MG Tablet PO (22:07)
[2021-04-05] MEDS: hydrocortisone 1% cream 28 gm 1 APPLIC TOPICAL (22:46)
[2021-04-05 22:49] VITALS: RESP 22; O2SAT 96
[2021-04-05] MEDS: aztreonam 2,000 MG in sodium chloride 0.9% (plus) 100 ML 200 MG IV (22:53)
[2021-04-06 01:09] VITALS: BP 99/64; PULSE 68; RESP 20; TEMP 36.4; O2SAT 97
[2021-04-06 04:00] VITALS: BP 98/63; PULSE 82; RESP 20; TEMP 36.6; O2SAT 96
[2021-04-06] MEDS: oxybutynin chloride XL 5 MG TABLET 10 MG PO (05:20)
[2021-04-06 05:49] LABS: Basophils # 0.1 10^3/uL (0.0-0.1); Basophils % 0.4 %; Eosinophils # 0.4 10^3/uL (0.0-0.8); Eosinophils % 2.8 %; Hematocrit 36.2 % (37.0-47.0); Hemoglobin 11.6 g/dL (11.5-15.3); Lymphocytes % 13.4 %; Mean Corpuscular Hemoglobin 27.8 pg (28.0-34.0); Mean Corpuscular Volume 86.8 fl (81-99); Mean Platelet Volume 10.5 fL (7.4-10.4); Monocytes # 1.3 10^3/uL (0.2-0.9); Monocytes % 9.1 %; Neutrophils # 10.67 10^3/uL (1.8-7.7); Neutrophils % 73.3 %; Nucleated Red Blood Cells % 0 %; Platelet Count 375 10^3/cmm (130-400); Red Blood Count 4.17 10^6/uL (4.1-5.3); Red Cell Distribution Width 14.4 % (12.1-15.1); White Blood Count 14.6 10^3/uL (4.0-10.0)
[2021-04-06 06:11] LABS: Alanine Aminotransferase 12 U/L (0-33); Albumin Level 3.6 g/dL (3.5-5.2); Alkaline Phosphatase 58 IU/L (35-105); Blood Urea Nitrogen 26 mg/dL (8-23); C Reactive Protein 29.5 mg/L (0.0-4.9); Calcium 9.3 mg/dL (8.5-10.5); Carbon Dioxide 21 mmol/L (22-29); Chloride 102 mmol/L (98-107); Globulin 2.2 g/dL (1.3-4.6); Glomerular Filtration Rate 84.2 mL/min (90-130); Glucose 106 mg/dL (65-115); Magnesium 1.9 mg/dL (1.7-2.3); Osmolality Calculated 287 mOsm/kg (285-295); Sodium 136 mmol/L (136-145); Total Bilirubin 0.3 mg/dL (0.15-1.2); Total Protein 5.8 g/dL (6.6-8.7)
[2021-04-06 06:20] LABS: Anion Gap 16.8 (5-19); Aspartate Amino Transferase 16 U/L (0-32); Potassium 3.8 mmol/L (3.5-5.1)
[2021-04-06 08:00] VITALS: BP 100/64; PULSE 77; RESP 16; TEMP 36.4; O2SAT 97
--- NOTE | 2021-04-06 08:10 | USR_ITS ---
PROCEDURE INFORMATION: Exam: US Duplex Lower Extremity Veins, Bilateral Exam date and time: 04/06/2021 8:10 AM Age: 66 years old Clinical indication: Edema, localized; Lower extremity, bilateral; Additional info: Dimer, leg pian TECHNIQUE: Imaging protocol: Real-time Duplex ultrasound of the bilateral extremities with 2-D wolff scale, color Doppler flow and spectral waveform analysis with image documentation. Complete exam focused on the bilateral lower extremity veins. COMPARISON: CT abdomen pelvis w con* [id number] 04/05/2021 3:52 PM FINDINGS: Right deep veins: Unremarkable. The common femoral, femoral, proximal profunda femoral and popliteal veins are patent without thrombus. Normal Doppler waveforms. Normal compressibility and/or augmentation response. Right superficial veins: Saphenofemoral junction is patent without thrombus. Left deep veins: Unremarkable. The common femoral, femoral, proximal profunda femoral and popliteal veins are patent without thrombus. Normal Doppler waveforms. Normal compressibility and/or augmentation response. Left superficial veins: Saphenofemoral junction is patent without thrombus. Soft tissues: Unremarkable. US/CV venous duplex [facility] [id number] IMPRESSION: No evidence of deep vein thrombosis.
[2021-04-06 08:24] VITALS: PULSE 82; RESP 16; O2SAT 96
[2021-04-06] MEDS: lactated ringers 1,000 ML 999 ML IV (08:51)
[2021-04-06] MEDS: magnesium oxide 400 mg tablet PO (08:52)
[2021-04-06] MEDS: metroNIDAZOLE 500 MG Tablet PO (08:52)
[2021-04-06] MEDS: doxycycline 100 mg Tablet PO (08:52)
[2021-04-06] MEDS: calcium carb-vit d 500mg-200unit 1 Tablet 1 EACH PO (08:53)
[2021-04-06] MEDS: famotidine 20 mg Tablet PO (08:53)
[2021-04-06] MEDS: multivitamin therapeutic Tablet 1 TAB PO (08:53)
[2021-04-06] MEDS: hydrocortisone 1% cream 28 gm 1 APPLIC TOPICAL (08:59)
[2021-04-06] MEDS: aztreonam 2,000 MG in sodium chloride 0.9% (plus) 100 ML 200 MG IV (11:11)
[2021-04-06] MEDS: sodium chloride 0.9% 1,000 ML 75 ML IV (11:11)
--- NOTE | 2021-04-06 11:51 | P.DS_ITS ---
Discharge Providers Date of Admission: 04/05/21 17:02 Date of Discharge: April 06, 2021 Attending Provider at Admission: Alberto Mcknight MD Attending Provider at Discharge: Alberto Mcknight MD Primary Care Provider: Devika Miller MD Diagnoses at Discharge Discharge Diagnosis (1) Contact dermatitis: Status: Acute (2) Sleep apnea: Status: Acute (3) Fatigue: Status: Acute (4) Diarrhea: Status: Acute (5) Enterocolitis: Status: Acute (6) Splenic trauma: Status: Acute Reason for Visit Reason for Visit: WEAK Hospital Course Hospital Course Patient was admitted on 04/05 for management of enterocolitis, 2 weeks ago she had gastric sleeve surgery in [facility], developed contact dermatitis on her abdominal wall, no signs of cellulitis, recontact for dermatitis did respond adequately to topical steroids and I kept her on doxycyc line. Keflex has been discontinued. Leukocytosis trending down to 14,000 at the time of discharge, secondary to high D-dimer CTA chest was done which was unremarkable for any signs of PE, no signs of DVT, abdominal vessels are patent as well with no signs of ischemic colitis, splenic injury most likely happened with gastric sleeve surgery this was discussed with the surgeon at the time of admission who did not recommend anticoagulating patient at this point. C. difficile negative. Patient already has an appointment to follow-up with her surgeon, I will discharge her on topical steroids, ciprofloxacin, Flagyl 10-day regimen. She is on liquid diet now. No diarrhea since her admission. I would not recommend loperamide at this point. Physical Exam Narrative: Patient laying flat comfortable Saturating well on room air S1, S2 Abdomen soft contact dermatitis hyperemia improved no signs of hyperemia or cellulitis today Nonfocal neuro exam No joint swelling Appropriate mood and affect No audible stridor or wheezing Discharge Data Studies Completed and Pending Completed Studies During Hospitalization Category Date Time Status CT abdomen pelvis w con* [id number] Urgent Cat Scan 04/05/21 15:17 Completed CTA chest [CT angio chest PE protcl [id number]] Urgent Cat Scan 04/05/21 16:28 [place] [id number] Routine Ultrasound 04/06/21 08:10 Completed Pending at discharge Category Date Time Status Enteric Bacterial Panel by PCR Routine Lab 04/05/21 18:25 Results Enteric Parasite Panel by PCR Routine Lab 04/05/21 18:25 Results Immunochemical Fecal OCB Routine Lab 04/05/21 18:25 Results Lactoferrin Routine Lab 04/05/21 18:25 Results Radiology Impressions Abdomen/Pelvis CT 04/05/21 15:17 IMPRESSION: 1. Recent postoperative changes gastric sleeve surgery. Gastric sleeve is normal in appearance with normal postoperative changes. No drainable fluid collections. 2. Small area of decreased enhancement involving the tip of the posterior spleen with surrounding perisplenic fluid suspicious for splenic laceration artis uring 2.0 x 1.8 cm. No evidence of active hemorrhage. Recommend short interval follow-up. 3. Diffuse thickening with submucosal enhancement and surrounding induration involving the small bowel extending from the jejunum to the terminal ileum. This also involves the cecum and RIGHT ascending colon compatible with an enterocolitis. Differential considerations include infectious, inflammatory or ischemic etiologies. 4. Mild to moderate free fluid in the pelvis. Scattered interloop fluid in the mid and upper abdomen. Fluid in the pericolic gutters. 5. Proximal celiac and SMA appear patent. 6. Normal caliber abdominal aorta. 7. Prior cholecystectomy. 8. No free air. Notified Taryn Rapp MD at 04/05/2021 4:29 PM. Chest CTA 04/05/21 16:28 IMPRESSION: 1. Negative for pulmonary embolus. 2. Minimal left lower lobe atelectasis. 3. Small amount of ascites about the liver. 4. Gastric surgical sutures. 5. Several subcentimeter nonspecific mediastinal lymph nodes. 6. Coronary artery atherosclerotic calcifications. Venous Duplex 04/06/21 08:10 IMPRESSION: No evidence of deep vein thrombosis. Laboratory Results WBC 14.6 10^3/uL (4.0-10.0) H 04/06/21 05:28 RBC 4.17 10^6/uL (4.1-5.3) 04/06/21 05:28 Hgb 11.6 g/dL (11.5-15.3) 04/06/21 05:28 Hct 36.2 % (37.0-47.0) L 04/06/21 05:28 MCV 86.8 fl (81-99) 04/06/21 05:28 MCH 27.8 pg (28.0-34.0) L 04/06/21 05:28 MCHC 32.0 g/dL (30.0-36.0) 04/06/21 05:28 RDW 14.4 % (12.1-15.1) 04/06/21 05:28 Plt Count 375 10^3/cmm (130-400) D 04/06/21 05:28 MPV 10.5 fL (7.4-10.4) H 04/06/21 05:28 Neut % (Auto) 73.3 % 04/06/21 05:28 Lymph % (Auto) 13.4 % 04/06/21 05:28 [place] % (Auto) 9.1 % 04/06/21 05:28 Eos % (Auto) 2.8 % 04/06/21 05:28 Baso % (Auto) 0.4 % 04/06/21 05:28 Neut # (Auto) 10.67 10^3/uL (1.8-7.7) H 04/06/21 05:28 Lymph # (Auto) 2.0 10^3/uL (0.8-4.8) 04/06/21 05:28 [place] # (Auto) 1.3 10^3/uL (0.2-0.9) H 04/06/21 05:28 Eos # (Auto) 0.4 10^3/uL (0.0-0.8) 04/06/21 05:28 Baso # (Auto) 0.1 10^3/uL (0.0-0.1) 04/06/21 05:28 Nucleated RBC % (auto) 0 % 04/06/21 05:28 Nucleated RBCs # 0.0 /100WBC 04/06/21 05:28 D-Dimer >= 20.00 ug/mIFEU (0-0.59) H 04/05/21 15:01 Sodium 136 mmol/L (136-145) 04/06/21 05:28 Potassium 3.8 mmol/L (3.5-5.1) 04/06/21 05:28 Chloride 102 mmol/L (98-107) 04/06/21 05:28 Carbon Dioxide 21 mmol/L (22-29) L 04/06/21 05:28 Anion Gap 16.8 (5-19) 04/06/21 05:28 BUN 26 mg/dL (8-23) H 04/06/21 05:28 Creatinine 0.7 mg/dL (0.5-0.9) 04/06/21 05:28 GFR Calculation 84.2 mL/min (90-130) L 04/06/21 05:28 Glucose 106 mg/dL (65-115) 04/06/21 05:28 Calculated Osmolality 287 mOsm/kg (285-295) 04/06/21 05:28 Calcium 9.3 mg/dL (8.5-10.5) 04/06/21 05:28 Magnesium 1.9 mg/dL (1.7-2.3) 04/06/21 05:28 Total Bilirubin 0.3 mg/dL (0.15-1.2) 04/06/21 05:28 AST 16 U/L (0-32) 04/06/21 05:28 ALT 12 U/L (0-33) 04/06/21 05:28 Alkaline Phosphatase 58 IU/L (35-105) 04/06/21 05:28 Troponin T Gen 5 ng/L 27 ng/L (0-10) H 04/05/21 15:01 C-Reactive Protein 29.5 mg/L (0.0-4.9) H 04/06/21 05:28 Total Protein 5.8 g/dL (6.6-8.7) L 04/06/21 05:28 Albumin 3.6 g/dL (3.5-5.2) 04/06/21 05:28 Globulin 2.2 g/dL (1.3-4.6) 04/06/21 05:28 Lipase 80 U/L (13-60) H 04/05/21 15:01 Procalcitonin 0.20 ng/mL (0-0.5) 04/05/21 15:01 Urine Color Yellow (Yellow) 04/05/21 15:20 Urine Appearance Hazy (CLEAR) A 04/05/21 15:20 Urine pH 7 (5-7) 04/05/21 15:20 Ur Specific [place] 1.005 (1.005-1.030) 04/05/21 15:20 Urine Protein Neg (Negative) 04/05/21 15:20 Urine Glucose (UA) Norm (Normal) 04/05/21 15:20 Urine Ketones Negative (Negative) 04/05/21 15:20 Urine Blood 2+ (Negative) H 04/05/21 15:20 Urine Nitrate Negative (Negative) 04/05/21 15:20 Urine Bilirubin Neg (Negative) 04/05/21 15:20 Urine Urobilinogen Neg mg/dL (Negative) 04/05/21 15:20 Ur Leukocyte Esterase Trace (Negative) H 04/05/21 15:20 Urine RBC 5-10 /hpf (0-2) H 04/05/21 15:20 Urine WBC 10-15 /hpf (0-5) H 04/05/21 15:20 Ur Squamous Epith Cells 0-4 /hpf (0-5) H 04/05/21 15:20 Ur Renal Epithelial Cell 0-4 /hpf 04/05/21 15:20 Amorphous Sediment 1+ /hpf 04/05/21 15:20 Urine Bacteria Trace /hpf (NONE) 04/05/21 15:20 Vitals Last Vital Signs Temp 97.6 F 04/06/21 08:00 Pulse 82 04/06/21 08:24 Resp 16 04/06/21 08:24 BP 100/64 04/06/21 08:00 Pulse Ox 96 04/06/21 08:24 Discharge Plan Discharge Patient Disposition: Home Condition: Stable Prescriptions: New potassium chloride 8 mEq capsule, extended release 8 meq PO .every othterday Qty: 30 0RF metronidazole 500 mg tablet 500 mg PO Q8H 10 Days Qty: 30 0RF ciprofloxacin HCl 500 mg tablet 500 mg PO BID 10 Days Qty: 20 0RF hydrocortisone-aloe vera 1 % cream 1 applic topical TID PRN (Reason: itching) Qty: 28 0RF Continued multivitamin Tablet 1 tab PO DAILY 0RF oxybutynin chloride 10 mg tablet extended release 24hr 10 mg PO QAM 0RF sertraline 100 mg tablet 150 mg PO QAM 0RF calcium carbonate-vitamin D3 600 mg(1,500mg) -200 unit Tablet 1 tab PO BID 0RF famotidine 20 mg tablet 20 mg PO BID 0RF simvastatin 20 mg tablet 20 mg PO QPM 0RF cholecalciferol (vitamin D3) [Vitamin D3] 10 mcg (400 unit) Capsule 10 mcg PO BID 0RF Collagen Tabs 3 tab PO BID 0RF magnesium oxide 400 mg magnesium tablet 400 mg PO DAILY 0RF Discontinued lisinopril 10 mg tablet 10 mg PO QAM 0RF polyethylene glycol 3350 [Miralax] 17 gram/dose powder 17 g PO DAILY PRN (Reason: Constipation) 0RF cetirizine [Zyrtec] 10 mg Tablet 10 mg PO DAILY 0RF cephalexin 500 mg capsule 500 mg PO BID 0RF potassium gluconate 595 mg (99 mg) Tablet 595 mg PO DAILY 0RF Discharge Orders: Discharge Order (Routine); Ordered 04/06/21 Ordered By: Alberto Mcknight Referrals: Devika Miller MD [Primary Care Provider] - 4-7 days (PLEASE CALL [phone] TO MAKE A FOLLOW-UP APPOINTMENT TO SEE DR. MILLER WITHIN ONE WEEK. ) Discharge Diet: Full LIquid Discharge Activity: Increase activity as tolerated Patient Instructions: Ciprofloxacin (By mouth) (Cipro), Potassium Chloride (By mouth), Metronidazole (By mouth) (Flagyl, Flagyl 375, Flagyl ER), Contact Dermatitis (DC), Opioid Safety Discharge Attestations Time Spent in Discharge Care*: less than 30 min Status at Discharge: Cognitive status at discharge: cognitively intact , Behavioral status at discharge: cooperative , Quality Metrics Clinical Quality Measures [ No reported AMI, CVA or VTE this stay] Coding Level of Care Code Acute Chg FW DC note Diagnoses Contact dermatitis L25.9 Sleep apnea G47.30 Fatigue R53.83 Diarrhea R19.7 Enterocolitis K52.9 Splenic trauma S36.00XA
[2021-04-06 12:00] VITALS: BP 104/64; PULSE 78; RESP 16; TEMP 36.8; O2SAT 97
--- NOTE | 2021-04-06 12:05 | PC.CHAP ---
Pastoral Care Encounter/Spiritual Assessment Type of Contact [] Declined cis[employer] certified network associate visit [] Patient/Family/Request visit [] Outpatient visit [] Follow-up visit [] Physician referral [] Code/Alert [X] Routine visit [] Staff referral [] Actively dying [X] Patient sleeping [] Family support [] [] Out of room [] Palliative care [] [] Receiving care in room [] Pre-surgical visit [] Trauma [] Long length of stay [] ICU visit [] Other: Relational/Emotional Strength [] Patient feels connected with others/family/visitors/staff [] Distress [] Loneliness/isolation [] Abandonment Spirituality of Patient [] Person of Tennille [] Attends Faith of their [place]ille [] Believes in Prayer [] Reads Bible or Confucianist materials [] There are Spiritual issues to be addressed Student Ambassador Interventions [] Prayer [] Active listening [] Non-anxious presence [] Spiritual/emotional support [] Crisis/trauma care [] Spiritual counseling [] Bereavement support [] Provided bereavement packet [] Provided Bible/devotional materials [] Provided toy/stuffed animal, coloring book to patient or family member [] Provided Communion [] Anointing/[place] [] Salvation [] Completed spiritual assessment [] Other: Impact on Illness or Injury [] Angry [] Fearful [] Anxious [] Often cries [] Exhaustion [] Unable to work [] Unable to attend yarsani [] Unable to walk/stand [] Unable to read [] Unable to drive [] Unable to eat/drink [] Unable to sleep [] Unable to be with family [] Patient intubated [] Other: Summary Time spent with patient
--- NOTE | 2021-04-06 13:06 | PC.NURSE ---
PT HAS DONE WELL TODAY. PT HAS NOT HAD ANY COMPLAINTS OF PAIN. PT HAS NOT HAD ANY DIARRHEA. DISCHARGE PAPERWORK GONE OVER WITH PT. ALL QUESTIONS ANSWERED. IV REMOVED. PT TOLERATED WELL. CATHETER TIP INTACT. PT IS DRESSED AND READY TO GO. WE ARE JUST WAITING FOR PTS MEDICATIONS TO BE DELIVERED FROM OUR PHARMACY AND HER RIDE TO GET HERE. WILL CONTINUE TO MONITOR PT.
[2021-04-06 13:27] VITALS: BP 104/64; PULSE 78; RESP 16; TEMP 36.8; O2SAT 97
--- NOTE | 2021-04-06 13:27 | PC.NURSE ---
PT SAFELY WHEELED OUT BY THIS NURSE.
== END 2021-04-06 13:28 | disposition home or self-care (01) ==
LOC: ER 16:05 → MEDSURG 18:32
PROVIDERS: Admitting Provider Internal Medicine; Emergency Provider Emergency Medicine; PCP Family Medicine; Visit Provider Internal Medicine
DX: L25.9 Unspecified contact dermatitis, unspecified cause (principal); G47.30 Sleep apnea, unspecified; R53.83 Other fatigue; K52.9 Noninfective gastroenteritis and colitis, unspecified; S36.00XA Unspecified injury of spleen, initial encounter; Z98.84 Bariatric surgery status; M79.605 Pain in left leg; M79.604 Pain in right leg; Y69 Unspecified misadventure during surgical and medical care; Y92.234 Operating room of hospital as the place of occurrence of the external cause; I10 Essential (primary) hypertension; Z82.49 Family history of ischemic heart disease and other diseases of the circulatory system
CPT/HCPCS: 36415; 71275; 74177; 80053; 81001; 82274; 83630; 83690; 83735; 84145; 84484; 85025; 85378; 86140; 87493; 87506; 93005; 93970; 94660; 96365; 96367; 96372; 99285; G0378; J0692; J1650; J3490; J7030; Q9967

== ENCOUNTER 2022-12-11 16:01 | Outpatient (CLI) | payer MEDICARE, SELFPAY ==
--- NOTE | 2022-12-11 16:20 | XR_ITS ---
WS: [id number] SCREENING DEXA SCAN [employer] CLINICAL INFORMATION: Asymptomatic menopausal COMPARISON: None. FINDINGS: The L1-L4 bone mineral density measures 1.133 g/cm2. This corresponds to a T score score of -0.4 and Z score of 0.3. Left femoral neck bone mineral density measures 0.998 g/cm2. This corresponds to a T score of -0.1 an d Z score of 0.5. Right femoral neck bone mineral density measures 0.922 g/cm2. This corresponds to a T score -0.7of an d Z score of -0.1. Mean femoral neck bone mineral density measures 0.960 g/cm2. This corresponds to a T score of -0.4 an d Z score of 0.2. IMPRESSION: Normal bone mineralization lumbar spine and femoral necks. Patient's FRAX calculated 10 year probability for major osteoporotic fracture is 11.6% and osteoporot ic hip fracture is 0.6%.
== END 2022-12-11 16:02 | disposition home or self-care (01) ==
PROVIDERS: PCP Family Medicine; Visit Provider Nurse Practitioner Family
DX: Z13.820 Encounter for screening for osteoporosis (principal); Z78.0 Asymptomatic menopausal state
CPT/HCPCS: 77080

== ENCOUNTER 2023-06-22 11:59 | Outpatient (CLI) | payer MEDICARE, SELFPAY ==
--- NOTE | 2023-06-22 12:04 | CT_ITS ---
WS: [id number] CT HEAD TECHNIQUE: Noncontrast CT of the head obtained from the skullbase to the vertex. CLINICAL INFORMATION: TIA COMPARISON: CT 08/19/2020 DLP: 1014.[address] scans at [facility] use at least one of these dose optimization techniques: automated e xposure control; mA and/or kV adjustment per patient size (includes targeted exams where dose is matc hed to clinical indication); or iterative reconstruction. FINDINGS: No evidence of intracranial hemorrhage or mass effect. Ventricular system and basal cisterns are rivas nt. Mild small vessel changes with mild parenchymal volume loss. No extra-axial fluid collections. No evidence of mass or mass effect. Paranasal sinuses are well aerated. Mucosal thickening LEFT mastoid tip. CT/CT head wo con* [id number] IMPRESSION: 1. No evidence of intracranial hemorrhage or mass effect. 2. Mild small vessel changes with mild parenchymal volume loss worse in the fr ontal lobes. 3. No acute intracranial findings.
--- NOTE | 2023-06-22 12:22 | USCV_ITS ---
Lala Mendez Age: 68 Gender: F : 1955 Exam Date: 06/22/2023 12:49 Ordering Phys: Devika Miller MD Technologist: CAROLANN [place] [facility] [place]: Lt sided numbness Risk Factors: Previous Vascular Surgery: Right Brachial BP: / Left Brachial BP: / Right Left Velocity (cm/s) Spectral Plaque Velocity (cm/s) Spectral Plaque Syst/Diast Broadening Syst/Diast Broadening 62.50/ 16.80 Prox CCA 89.30 / 32.00 58.20/ 18.00 Mid CCA 92.50 / 31.90 80.20/ 24.50 Distal CCA 94.30 / 28.30 44.30/ 11.30 Prox ICA 87.10 / 24.80 50.30/ 18.80 Mid ICA 105.00/ 40.80 77.20/ 30.40 Distal ICA 90.70 / 35.50 74.80 ECA 101.40 1.00 ICA/CCA 1.10 Antegrade Vertebral Antegrade 36.60/ 14.30 cm/s 55.80/ 24.30 cm/s Tri Subclavian Tri 113.1 150.1 0 0 CONCLUSIONS Intimal thickening in the common carotid arteries and internal carotid arteries bilaterally. Right ICA stenosis <50%. Left ICA stenosis <50%. Normal antegrade Doppler flow noted in the right vertebral artery. Normal antegrade Doppler flow noted in the left vertebral artery. Tim Solomon MD (Electronically Signed) Final Date: 22 Jun 2023 15:49 S
--- NOTE | 2023-06-22 12:22 | USCV_ITS ---
Lala Mendez Age: 68 Gender: F : 1955 Exam Date: 06/22/2023 12:25 Ordering Phys: Devika Miller MD Technologist: [place] [facility] [place]ication: BP: 135 / 86 HR: 71 Rhythm: Sinus Technical Quality: Adequate MEASUREMENTS (Male / Female) Normal Values 2D ECHO LVOT Diameter 2.1 cm LV Ejection Fraction MOD 2C 57.2 % LV Ejection Fraction 2C AL 59.0 % LA Diameter 3.7 cm RA Systolic Volume 4C AL 41.0 ml RA Systolic Volume 4C MOD 37.1 ml LA Sys Volume AL 52.3 cm cubed LA Sys Volume Index AL 26.1 cm cubed/m squared Aorta at Sinotubular Diameter 2.5 cm IVC Diameter 1.8 cm M-MODE LA Ao Ratio MM 1.6 AV Cusp Separation MM 1.8 cm DOPPLER AV Peak Velocity 159.0 cm/s LVOT Peak Velocity 136.0 cm/s AV Area Cont Eq vti 3.3 cm squared AV Area Cont Eq pk 2.9 cm squared MV Peak Velocity 133.0 cm/s MV Area PHT 2.8 cm squared Mitral E to A Ratio 0.8 TV Peak Velocity 183.0 cm/s TR Peak Velocity 226.0 cm/s TR Peak Gradient 20.4 mmHg TV Peak E Velocity 56.0 cm/s Right Atrial Pressure 3.0 mmHg Pulmonary Artery Systolic Pressu 23.4 mmHg PV Peak Velocity 112.5 cm/s FINDINGS Left Ventricle Left ventricle is normal in size. LV systolic function is normal with EF of 55 to 60%. No regional wall motion abnormalities are seen. Grade 1 diastolic dysfunction. Right Ventricle Normal in size and function Right Atrium Normal in size Left Atrium Normal in size Mitral Valve Structurally normal mitral valve. Trace mitral regurgitation. Aortic Valve Structurally normal aortic valve. No significant stenosis or regurgitation. Tricuspid Valve Mild tricuspid regurgitation. RVSP is normal. Pulmonic Valve Not well-visualized. Pericardium Normal Aorta Normal in size IVC Appears to be normal CONCLUSIONS LV systolic function is normal with EF of 55-60% Grade 1 diastolic dysfunction Trace mitral regurgitation Mild tricuspid regurgitation Compared to prior echocardiogram from 2020, no significant changes are seen Ross Alicia MD (Electronically Signed) Final Date: 04 Jul 2023 21:41 S
== END 2023-06-22 12:00 | disposition home or self-care (01) ==
LOC: RAD 12:00
PROVIDERS: PCP Family Medicine; Visit Provider Family Medicine
DX: I65.23 Occlusion and stenosis of bilateral carotid arteries (principal); G31.89 Other specified degenerative diseases of nervous system
CPT/HCPCS: 70450; 93306; 93880

== ENCOUNTER → 2023-09-07 10:20 | Outpatient (BNVA) | payer MEDICARE, SELFPAY | PROVIDERS: PCP Family Medicine; Visit Provider Psychiatry & Neurology Neurology | DX: G56.03 Carpal tunnel syndrome, bilateral upper limbs (principal); R20.0 Anesthesia of skin; R20.2 Paresthesia of skin; G62.89 Other specified polyneuropathies; G57.51 Tarsal tunnel syndrome, right lower limb | CPT/HCPCS: 95885; 95913 ==

== ENCOUNTER 2023-09-09 10:30 | Outpatient (CLI) | payer MEDICARE, SELFPAY ==
--- NOTE | 2023-09-09 10:38 | MM_ITS ---
WS: [id number] Bilateral screening 3D tomosynthesis digital mammogram, 09/09/2023 Clinical Data: SCREENING Comparison: 05/27/2020, 01/12/2019, 05/26/2016, 11/17/2014, 06/01/2013, 03/05/2012, 09/27/2009, 11/20/2005. Findings: The breast parenchymal pattern shows fibroglandular tissue. No spiculated masses or clustered calcifi cations are seen. There are no secondary signs of carcinoma. MM/[place] [id number] Impression: 1. Negative bilateral mammogram unchanged. 2. Recommend annual screening mammograms. BIRADS: 1-Negative FOLLOW UP: 1 Year Follow-up The CAD frequency checker was used.
== END 2023-09-09 10:31 | disposition home or self-care (01) ==
PROVIDERS: PCP Family Medicine; Visit Provider Family Medicine
DX: Z12.31 Encounter for screening mammogram for malignant neoplasm of breast (principal)
CPT/HCPCS: 77063; 77067

== ENCOUNTER 2023-12-14 08:16 | Outpatient (CLI) | payer MEDICARE, SELFPAY ==
--- NOTE | 2023-12-14 08:38 | NMCV_ITS ---
NM vanita perf SPECT r/s* [id number] Lala Mendez Age: 68 Gender: F : 1955 Exam Date: 12/14/2023 09:08 Ordering Phys: Neha Beyer MD Technologist: KATIE Amaya Exam Location: [facility] Indications: cp STRESS TEST [facility] IMAGE PROTOCOL Rest/Stress 1 Exercise Day Radiopharmaceutical Dose (mCi) Administration Site Administered by Rest: Tc-99m 9.3 IV Kinsey Young, ENVIRONMENTAL SUSTAINABILITY MANAGER Sestamibi Stress:Tc-99m 29.9 IV Kinsey Young, ENVIRONMENTAL SUSTAINABILITY MANAGER Sestamibi Rest: 14-Dec-2023 60 Discovery 630 Stress: 14-Dec-2023 15 Discovery 630 Radiopharmaceutical was injected at 94 % maximum heart rate. Images obtained in supine and prone position. SPECT RESULTS Technical Quality: Good Raw Data Analysis: Normal Image Corrections: No attenuation or motion correction applied Summed Stress Score: 2 Summed Rest Score: 1 Summed Difference Score: 2 PERFUSION FINDINGS Small area of mild to moderate reversibility noted in the distal anterior and apical wall, in the absence of wall motion abnormality it could be artifact FUNCTIONAL RESULTS (calculated via Gated SPECT) Stress Image LV EF (%): 74 Stress EDV (mL):82 TID: 0.89 Stress ESV (mL):21 FUNCTIONAL FINDINGS: There is normal left ventricular systolic function. IMPRESSIONS This study is negative for ischemia and low probability for obstructive coronary artery disease. EKG segment will be documented separately. Alberto Weber MD (Electronically Signed) Final Date: 15 December 2023 19:34 S
--- NOTE | 2023-12-14 08:38 | ECG_ITS ---
[facility]: [facility]23[facility]14 Pat Name: Lala Mendez Department: Room: Gender: Female Bobj Developer: : 1955 Requested By: Neha Beyer Order Number: [id number] Reanna MD: Ross Alicia M.D. Interpretive Statements EXERCISE STRESS TEST EXERCISE DATA: The patient was exercised by Eyal protocol. Baseline heart rate was 61 beats per minute. Baseline blood pressure was 146/74 millimeters of mercury. Maximal predicted heart rate was 154 beats per minute. Maximum heart rate achieved was 154 which was 100% of the maximum predicted heart rate. Maximum blood pressure hqy023/80 millimeters of mercury. Total exercise time was 6 minutes and 18 seconds. Maximum METs achieved was 10.2.The reason for ending the test was completion of protocol. The patient complained of shortness of breath during the stress test, which then resolved at the end of the test. ELECTROCARDIOGRAM: BASELINE: Showed sinus rhythm, normal axis, no significant ST-T changes at the baseline noted. [] EXERCISE: At the peak exercise level, [] No significant ST-T changes suggestive of ischemia noted. [] RECOVERY: During the recovery period, heart rate dropped appropriately. No significant ST-T changes in the recovery suggestive of ischemia noted. [] CONCLUSION: 1. Exercise capacity is good. 2. Heart rate response was appropriate 3. Blood pressure response was appropriate 4. Symptoms not suggestive of ischemia. 5. Stress test is negative for ischemia. Electronically Signed On 01-13-2024 19:11:56 CLINICAL SUPPORT NURSE by Ross Alicia M.D. [email or web address]
[2023-12-14 10:13] VITALS: BP 138/70; PULSE 94
== END 2023-12-14 08:17 | disposition home or self-care (01) ==
LOC: CDL 08:17
PROVIDERS: PCP Family Medicine; Visit Provider Internal Medicine
DX: R07.9 Chest pain, unspecified (principal); I47.20 Ventricular tachycardia, unspecified; I51.89 Other ill-defined heart diseases; I65.29 Occlusion and stenosis of unspecified carotid artery; E78.5 Hyperlipidemia, unspecified; R06.02 Shortness of breath
CPT/HCPCS: 36415; 78452; 93017; 96374; A9500